=== PATIENT | female | born 1935 | race African-American/Black ===

== ENCOUNTER 2017-06-24 12:44 | Inpatient (IN) | payer MEDICARE, MEDICAID ==
[~2017-06-24] VITALS: Ht 147.3 cm; Wt 49.2 kg
[~2017-06-24 12:44] MED LIST: ASPI-1159 PO; BIMA2.5D4 EACHEYE; FLUT1AER; FURO-152 PO; GABA-531 PO; HYDR-4134 PO; LEVO50TA70 PO; POTA20TA75 PO; PRAV40TA58 PO; RANI150C12; SIMV20TA6 PO; SPIR25TA4 PO
[2017-06-24] MEDS ORDERED: IPRATROPIUM BROMIDE (0.02%) 0.5MG/2.5ML NEB HHN STA (13:02)
[2017-06-24] MEDS ORDERED: METHYLPREDNISOLONE SOD SUCC 125 MG/2 ML VIAL IV STA (13:02)
[2017-06-24 13:27] LABS: HEMATOCRIT. 26.9 % (36.0-48.0); HEMOGLOBIN. 8.8 g/dL (12.0-16.0); MEAN CORPUSCULAR HEMOGLOBIN 28.4 pg (28.0-32.0); MEAN PLATELET VOLUME 7.2 fl (7.4-10.4); PLATELET 520 x1000/uL (130-400); RED BLOOD CELL COUNT 3.09 mill/uL (4.2-5.4)
[2017-06-24] MEDS ORDERED: ALBUTEROL (0.083%) 2.5MG/3ML NEB HHN SCH (13:30)
[2017-06-24 13:37] LABS: CARBON DIOXIDE 29 mEq/L (21-32); CHLORIDE 99 mEq/L (98-107)
[2017-06-24 13:45] LABS: TROPONIN I < 0.02 ng/mL (0.00-0.04)
[2017-06-24 13:55] LABS: INR 1.5
[2017-06-24 14:02] LABS: PLATELET ESTIMATE INCREASED
[2017-06-24] MEDS ORDERED: FUROSEMIDE 40MG/4ML VIAL IV ONE (14:15)
[2017-06-24] MEDS ORDERED: ASPIRIN 81MG TABLET PO ONE (14:15)
[2017-06-24 15:15] LABS: BG BASE EXCESS 0.1 mmol/L (-2.0-2.0); BG CARBOXYHEMOGLOBIN 0.5 % (0.5-1.5); BG DEOXYHEMOGLOBIN 17.6 % (0.0-5.0); BG FRACTION INSPIRED OXYGEN 32; BG HCO3 ACT 24.6 mmol/L (22.0-26.0); BG METHEMOGLOBIN 0.4 % (0.0-1.5); BG OXYGEN SATURATION 82.2 % (92.0-98.5); BG OXYHEMOGLOBIN 81.5 % (94.0-97.0); BG PCO2 39.2 mmHg (35.0-45.0); BG PH 7.415 (7.350-7.450); BG SAMPLE SITE RIGHT BRACHIAL; BG TOTAL HEMOGLOBIN 9.7 g/dL (12.0-18.0); BG VENT MODE NASAL CANNULA
[2017-06-24 15:29] LABS: TOTAL IRON BINDING CAPACITY 229 ug/dL (250-450)
[2017-06-24 17:11] VITALS: BP 125/56
[2017-06-24] MEDS ORDERED: AMIO200T39 PO (17:56)
[2017-06-24] MEDS ORDERED: DILT180C69 PO (17:56)
[2017-06-24] MEDS ORDERED: HYDR-4135 PO (17:56)
[2017-06-24] MEDS ORDERED: FURO-152 PO (17:56)
[2017-06-24] MEDS ORDERED: RANI300T4 PO (17:56)
[2017-06-24] MEDS ORDERED: TIOT18CA3 IH (17:56)
[2017-06-24] MEDS ORDERED: APIX2.5T PO (17:56)
[2017-06-24] MEDS ORDERED: POTA20TA75 PO (17:56)
[2017-06-24] MEDS ORDERED: LEVO50TA70 PO (17:56)
[2017-06-24] MEDS ORDERED: GABA100C PO ×2 (17:56)
[2017-06-24] MEDS ORDERED: PRAV40TA PO (17:56)
[2017-06-24 18:00] VITALS: BP 111/52
[2017-06-24] MEDS ORDERED: IPRATROPIUM/ALBUTEROL 0.5-3(2.5)MG/3ML NEB HHN PRN (18:30)
[2017-06-24] MEDS: IPRATROPIUM/ALBUTEROL 0.5-3(2.5)MG/3ML NEB HHN SCH (19:34)
[2017-06-24 20:00] VITALS: BP 125/73
[2017-06-24] MEDS ORDERED: DILTIAZEM HCL 180MG CAPSULE CD 24HR PO SCH (20:00)
[2017-06-24] MEDS ORDERED: AMIODARONE HCL 200 MG TABLET PO SCH (20:00)
[2017-06-24] MEDS: GABAPENTIN 100MG CAPSULE PO SCH (21:42)
[2017-06-24] MEDS: HYDRALAZINE HCL 50MG TABLET PO SCH (21:43)
[2017-06-24 22:00] VITALS: BP 117/69
[2017-06-24] MEDS ORDERED: ACETAMINOPHEN WITH CODEINE 300/60MG TABLET PO PRN (23:30)
[2017-06-25] VITALS (16 sets, daily range): BP systolic 94–129; BP diastolic 51–75
[2017-06-25] MEDS: IPRATROPIUM/ALBUTEROL 0.5-3(2.5)MG/3ML NEB HHN SCH ×6 (00:03→20:08)
[2017-06-25 07:03] LABS: BASOPHILS % 0.3 % (0.0-2.0); MONOCYTES % 6.4 % (2.0-8.0)
[2017-06-25] MEDS ORDERED: LEVOTHYROXINE SODIUM 50MCG TABLET PO SCH (07:30)
[2017-06-25 07:38] LABS: HEMATOCRIT. 24.8 % (36.0-48.0); HEMOGLOBIN. 8.1 g/dL (12.0-16.0); MEAN CORPUSCULAR HEMOGLOBIN 28.2 pg (28.0-32.0); MEAN CORPUSCULAR VOLUME 86.6 fL (81.0-99.0); MEAN PLATELET VOLUME 7.5 fl (7.4-10.4); PLATELET 400 x1000/uL (130-400); RED BLOOD CELL COUNT 2.87 mill/uL (4.2-5.4); RED CELL DISTRIBUTION WIDTH 15.4 % (11.6-14.6)
[2017-06-25 07:45] LABS: CHLORIDE 100 mEq/L (98-107)
[2017-06-25 08:05] LABS: CARBON DIOXIDE 26 mEq/L (21-32); TROPONIN I < 0.02 ng/mL (0.00-0.04)
[2017-06-25] MEDS ORDERED: APIXABAN 2.5 MG TABLET PO SCH (09:00)
[2017-06-25] MEDS: HYDRALAZINE HCL 50MG TABLET PO SCH (09:00)
[2017-06-25] MEDS: DILTIAZEM HCL 180MG CAPSULE CD 24HR PO SCH (09:00)
[2017-06-25] MEDS: POTASSIUM CHLORIDE 20MEQ TABLET SR PO SCH (09:00)
[2017-06-25] MEDS: GABAPENTIN 100MG CAPSULE PO SCH (09:00)
[2017-06-25] MEDS: AMIODARONE HCL 200 MG TABLET PO SCH (09:00)
[2017-06-25 12:24] LABS: PLATELET ESTIMATE NORMAL
[2017-06-25] MEDS: HYDROMORPHONE HCL/PF 2MG/ML CPJ IV PRN ×2 (15:14→19:43)
[2017-06-25] MEDS: CEFTRIAXONE 1 G PREMIX 50 ML IV SCH (15:23)
[2017-06-25] MEDS: FUROSEMIDE 100MG/10ML VIAL IVP SCH (15:23)
[2017-06-25] MEDS ORDERED: MAGNESIUM 2 G PREMIX 50 ML IV SCH (16:00)
[2017-06-25 17:21] LABS: BG BASE EXCESS 4.2 mmol/L (-2.0-2.0); BG CARBOXYHEMOGLOBIN 0.3 % (0.5-1.5); BG DEOXYHEMOGLOBIN 6.8 % (0.0-5.0); BG FRACTION INSPIRED OXYGEN 100; BG HCO3 ACT 28.4 mmol/L (22.0-26.0); BG METHEMOGLOBIN 0.5 % (0.0-1.5); BG OXYGEN SATURATION 93.1 % (92.0-98.5); BG OXYHEMOGLOBIN 92.4 % (94.0-97.0); BG PCO2 40.9 mmHg (35.0-45.0); BG PH 7.459 (7.350-7.450); BG PO2 69.2 mmHg (75.0-100.0); BG SAMPLE SITE RIGHT RADIAL; BG TOTAL HEMOGLOBIN 8.8 g/dL (12.0-18.0); BG VENT MODE MASK - NRB
[2017-06-25] MEDS: IRON SUCROSE COMPLEX 100 MG/5 ML ML IV SCH (21:10)
[2017-06-25] MEDS ORDERED: ALBUTEROL (0.083%) 2.5MG/3ML NEB HHN PRN (21:30)
[2017-06-26] VITALS (12 sets, daily range): BP systolic 106–148; BP diastolic 57–95
[2017-06-26] MEDS: ALBUTEROL (0.083%) 2.5MG/3ML NEB HHN SCH ×6 (00:04→20:17)
[2017-06-26] MEDS: ACETYLCYSTEINE 100MG/ML 10% VIAL 4ML INH SCH ×3 (00:04→20:19)
[2017-06-26] MEDS: HYDROMORPHONE HCL/PF 2MG/ML CPJ IV PRN ×3 (06:41→23:19)
[2017-06-26 07:16] LABS: CARBON DIOXIDE 31 mEq/L (21-32); CHLORIDE 100 mEq/L (98-107); CREATINE KINASE 24 IU/L (26-192)
[2017-06-26 07:19] LABS: CREATINE KINASE MB FRACTION 1.8 ng/mL (0.5-3.6); TROPONIN I < 0.02 ng/mL (0.00-0.04)
[2017-06-26 07:25] LABS: HEMATOCRIT. 27.3 % (36.0-48.0); MEAN CORPUSCULAR HEMOGLOBIN 27.8 pg (28.0-32.0); MEAN CORPUSCULAR VOLUME 84.6 fL (81.0-99.0); MEAN PLATELET VOLUME 7.5 fl (7.4-10.4); PLATELET 442 x1000/uL (130-400); RED BLOOD CELL COUNT 3.23 mill/uL (4.2-5.4); RED CELL DISTRIBUTION WIDTH 15.5 % (11.6-14.6)
[2017-06-26] MEDS: DILTIAZEM HCL 180MG CAPSULE CD 24HR PO SCH (09:00)
[2017-06-26] MEDS: AMIODARONE HCL 200 MG TABLET PO SCH (09:00)
[2017-06-26] MEDS: POTASSIUM CHLORIDE 20MEQ TABLET SR PO SCH (09:00)
[2017-06-26] MEDS: FUROSEMIDE 100MG/10ML VIAL IVP SCH (11:20)
[2017-06-26] MEDS: CEFTRIAXONE 1 G PREMIX 50 ML IV SCH (11:20)
[2017-06-26] MEDS ORDERED: SODIUM BICARBONATE 4.2% 5 MEQ/10 ML DISP.SYRIN IV ONE (11:27)
[2017-06-26 11:30] LABS: INR 1.1; PARTIAL THROMBOPLASTIN TIME 36.2 sec (24.0-34.0)
[2017-06-26 17:33] LABS: PLATELET ESTIMATE INCREASED
[2017-06-26] MEDS: IRON SUCROSE COMPLEX 100 MG/5 ML ML IV SCH (20:45)
[2017-06-26 20:56] LABS: BG CARBOXYHEMOGLOBIN 0.3 % (0.5-1.5); BG DEOXYHEMOGLOBIN 5.5 % (0.0-5.0); BG FRACTION INSPIRED OXYGEN 100; BG HCO3 ACT 32.2 mmol/L (22.0-26.0); BG METHEMOGLOBIN 0.1 % (0.0-1.5); BG OXYGEN SATURATION 94.5 % (92.0-98.5); BG OXYHEMOGLOBIN 94.1 % (94.0-97.0); BG PCO2 43.6 mmHg (35.0-45.0); BG PH 7.486 (7.350-7.450); BG PO2 74.3 mmHg (75.0-100.0); BG SAMPLE SITE RIGHT RADIAL; BG TOTAL HEMOGLOBIN 10.2 g/dL (12.0-18.0); BG VENT MODE MASK - NRB
[2017-06-27] VITALS (11 sets, daily range): BP systolic 122–150; BP diastolic 63–79
[2017-06-27] MEDS: ALBUTEROL (0.083%) 2.5MG/3ML NEB HHN SCH ×6 (00:47→20:33)
[2017-06-27] MEDS: ACETYLCYSTEINE 100MG/ML 10% VIAL 4ML INH SCH ×2 (08:29→17:03)
[2017-06-27] MEDS: AMIODARONE HCL 200 MG TABLET PO SCH (09:00)
[2017-06-27] MEDS: DILTIAZEM HCL 180MG CAPSULE CD 24HR PO SCH (09:00)
[2017-06-27] MEDS ORDERED: VANCOMYCIN 1 G PREMIX 200 ML IV NR (09:30)
[2017-06-27] MEDS: HYDROMORPHONE HCL/PF 2MG/ML CPJ IV PRN ×3 (10:20→19:57)
[2017-06-27] MEDS: FUROSEMIDE 100MG/10ML VIAL IVP SCH (10:21)
[2017-06-27] MEDS: PANTOPRAZOLE SODIUM 40 MG/VIAL IV SCH (10:21)
[2017-06-27] MEDS: CEFTRIAXONE 1 G PREMIX 50 ML IV SCH (10:43)
[2017-06-27 11:23] LABS: HEMATOCRIT. 28.1 % (36.0-48.0); HEMOGLOBIN. 9.2 g/dL (12.0-16.0); MEAN CORPUSCULAR HEMOGLOBIN 27.8 pg (28.0-32.0); MEAN CORPUSCULAR VOLUME 84.8 fL (81.0-99.0); MEAN PLATELET VOLUME 7.3 fl (7.4-10.4); PLATELET 405 x1000/uL (130-400); RED BLOOD CELL COUNT 3.32 mill/uL (4.2-5.4); RED CELL DISTRIBUTION WIDTH 15.3 % (11.6-14.6)
[2017-06-27 11:41] LABS: CARBON DIOXIDE 32 mEq/L (21-32); CHLORIDE 103 mEq/L (98-107)
[2017-06-27] MEDS ORDERED: CLONIDINE 0.1MG TABLET PO PRN (13:00)
[2017-06-27] MEDS ORDERED: POTASSIUM CHLORIDE 20MEQ TABLET SR PO NR (13:00)
[2017-06-27 13:55] LABS: NUCLEATED RED BLOOD CELLS 3 /100 WBC; PLATELET ESTIMATE 3
[2017-06-27] MEDS ORDERED: KCL 20MEQ/100ML PREMIX 100 ML IV SCH (15:00)
[2017-06-27 15:58] LABS: BG BASE EXCESS 4.2 mmol/L (-2.0-2.0); BG CARBOXYHEMOGLOBIN 0.3 % (0.5-1.5); BG FRACTION INSPIRED OXYGEN 60; BG HCO3 ACT 27.7 mmol/L (22.0-26.0); BG METHEMOGLOBIN 0.3 % (0.0-1.5); BG OXYGEN SATURATION 86.9 % (92.0-98.5); BG OXYHEMOGLOBIN 86.4 % (94.0-97.0); BG PCO2 37.2 mmHg (35.0-45.0); BG PO2 51.9 mmHg (75.0-100.0); BG SAMPLE SITE RIGHT RADIAL; BG TOTAL HEMOGLOBIN 10.1 g/dL (12.0-18.0); BG VENT MODE MASK - AEROSOL
[2017-06-27] MEDS ORDERED: POTASSIUM CHLORIDE 20MEQ TABLET SR PO SCH (17:00)
[2017-06-27] MEDS: FUROSEMIDE 40MG/4ML VIAL IV SCH (17:22)
[2017-06-27] MEDS: DEXT 5%/0.45% NACL KCL 20MEQ/L 1,000 ML IV SCH (17:23)
[2017-06-27 19:29] LABS: CLARITY URINE CLEAR (CLEAR); COLOR URINE YELLOW (YELLOW); GLUCOSE URINE NEGATIVE (NEGATIVE); KETONES URINE NEGATIVE (NEGATIVE); LEUKOCYTE ESTERASE URINE 1+ (NEGATIVE); NITRITE URINE NEGATIVE (NEGATIVE); OCCULT BLOOD URINE 2+ (NEGATIVE); PH URINE 7.5 (4.5-8.0); PROTEIN URINE NEGATIVE (NEGATIVE); SPECIFIC GRAVITY URINE 1.008 (1.005-1.030); UROBILINOGEN URINE 0.2 E.U./dL (0.2-1.0)
[2017-06-27] MEDS: IRON SUCROSE COMPLEX 100 MG/5 ML ML IV SCH (19:56)
[2017-06-28] VITALS (12 sets, daily range): BP systolic 116–160; BP diastolic 56–79
[2017-06-28] MEDS: ACETYLCYSTEINE 100MG/ML 10% VIAL 4ML INH SCH ×3 (00:45→20:55)
[2017-06-28] MEDS: ALBUTEROL (0.083%) 2.5MG/3ML NEB HHN SCH ×5 (00:45→20:53)
[2017-06-28] MEDS: HYDROMORPHONE HCL/PF 2MG/ML CPJ IV PRN ×5 (03:04→23:33)
[2017-06-28] MEDS: DEXT 5%/0.45% NACL KCL 20MEQ/L 1,000 ML IV SCH ×2 (05:47→23:32)
[2017-06-28 06:31] LABS: HEMATOCRIT. 28.7 % (36.0-48.0); HEMOGLOBIN. 9.6 g/dL (12.0-16.0); MEAN CORPUSCULAR HEMOGLOBIN 28.7 pg (28.0-32.0); MEAN CORPUSCULAR VOLUME 85.3 fL (81.0-99.0); MEAN PLATELET VOLUME 7.4 fl (7.4-10.4); PLATELET 388 x1000/uL (130-400); RED BLOOD CELL COUNT 3.37 mill/uL (4.2-5.4); RED CELL DISTRIBUTION WIDTH 15.7 % (11.6-14.6)
[2017-06-28 07:37] LABS: CARBON DIOXIDE 34 mEq/L (21-32); CHLORIDE 101 mEq/L (98-107)
[2017-06-28] MEDS ORDERED: MAGNESIUM 2 G PREMIX 50 ML IV SCH (09:00)
[2017-06-28] MEDS: FUROSEMIDE 40MG/4ML VIAL IV SCH ×2 (09:14→18:07)
[2017-06-28] MEDS: PANTOPRAZOLE SODIUM 40 MG/VIAL IV SCH (09:15)
[2017-06-28] MEDS: CEFTRIAXONE 1 G PREMIX 50 ML IV SCH (09:15)
[2017-06-28] MEDS: KCL 20MEQ/100ML PREMIX 100 ML IV SCH ×2 (10:15→14:30)
[2017-06-28] MEDS: DILTIAZEM HCL 180MG CAPSULE CD 24HR PO SCH (10:19)
[2017-06-28] MEDS: AMIODARONE HCL 200 MG TABLET PO SCH (10:19)
[2017-06-28 14:14] LABS: PLATELET ESTIMATE NORMAL
[2017-06-28] MEDS ORDERED: MAGNESIUM 2 G PREMIX 50 ML IV ONE (15:00)
[2017-06-29] VITALS (12 sets, daily range): BP systolic 103–144; BP diastolic 49–74
[2017-06-29] MEDS: ACETYLCYSTEINE 100MG/ML 10% VIAL 4ML INH SCH ×4 (01:00→21:16)
[2017-06-29] MEDS: ALBUTEROL (0.083%) 2.5MG/3ML NEB HHN SCH ×7 (01:00→21:16)
[2017-06-29] MEDS: HYDROMORPHONE HCL/PF 2MG/ML CPJ IV PRN ×3 (05:54→22:26)
[2017-06-29 07:34] LABS: HEMATOCRIT. 27.4 % (36.0-48.0); HEMOGLOBIN. 9.3 g/dL (12.0-16.0); MEAN CORPUSCULAR VOLUME 85.1 fL (81.0-99.0); PLATELET 337 x1000/uL (130-400); RED BLOOD CELL COUNT 3.22 mill/uL (4.2-5.4); RED CELL DISTRIBUTION WIDTH 15.3 % (11.6-14.6)
[2017-06-29 07:58] LABS: CHLORIDE 101 mEq/L (98-107)
[2017-06-29 08:11] LABS: CARBON DIOXIDE 34 mEq/L (21-32)
[2017-06-29] MEDS: FAMOTIDINE 20MG/2ML VIAL IV SCH (08:20)
[2017-06-29] MEDS: FUROSEMIDE 40MG/4ML VIAL IV SCH ×2 (08:20→18:04)
[2017-06-29] MEDS: AMIODARONE HCL 200 MG TABLET PO SCH (08:20)
[2017-06-29] MEDS: DILTIAZEM HCL 180MG CAPSULE CD 24HR PO SCH (08:21)
[2017-06-29] MEDS: CEFTRIAXONE 1 G PREMIX 50 ML IV SCH (08:26)
[2017-06-29] MEDS: POTASSIUM BICARB/CIT ACID 25 MEQ TABLET.EFF PO SCH ×2 (10:53→18:03)
[2017-06-29] MEDS: SPIRONOLACTONE 25MG TABLET PO SCH ×2 (10:54→18:04)
[2017-06-29] MEDS: DEXT 5%/0.45% NACL KCL 20MEQ/L 1,000 ML IV SCH (10:55)
[2017-06-29] MEDS ORDERED: MAGNESIUM 2 G PREMIX 50 ML IV SCH (11:00)
[2017-06-29 14:15] LABS: PLATELET ESTIMATE NORMAL
[2017-06-29] MEDS ORDERED: FLUCONAZOLE IV SCH (18:00)
[2017-06-30] VITALS (12 sets, daily range): BP systolic 110–153; BP diastolic 53–88
[2017-06-30] MEDS: ALBUTEROL (0.083%) 2.5MG/3ML NEB HHN SCH ×7 (00:59→23:46)
[2017-06-30] MEDS: DEXT 5%/0.45% NACL KCL 20MEQ/L 1,000 ML IV SCH ×2 (02:41→18:36)
[2017-06-30 06:23] LABS: CLARITY URINE CLEAR (CLEAR); COLOR URINE YELLOW (YELLOW); GLUCOSE URINE NEGATIVE (NEGATIVE); KETONES URINE NEGATIVE (NEGATIVE); LEUKOCYTE ESTERASE URINE TRACE (NEGATIVE); NITRITE URINE NEGATIVE (NEGATIVE); OCCULT BLOOD URINE TRACE (NEGATIVE); PH URINE >=9.0 (4.5-8.0); PROTEIN URINE 1+ (NEGATIVE); SPECIFIC GRAVITY URINE 1.012 (1.005-1.030); UROBILINOGEN URINE 0.2 E.U./dL (0.2-1.0)
[2017-06-30 06:25] LABS: BASOPHILS % 0.4 % (0.0-2.0); EOSINOPHILS % 1.2 % (0.0-5.0); HEMATOCRIT. 28.7 % (36.0-48.0); HEMOGLOBIN. 9.5 g/dL (12.0-16.0); LYMPHOCYTES % 11.9 % (20.0-50.0); MEAN CORPUSCULAR HEMOGLOBIN 28.1 pg (28.0-32.0); MEAN CORPUSCULAR VOLUME 85.4 fL (81.0-99.0); MEAN PLATELET VOLUME 7.5 fl (7.4-10.4); MONOCYTES % 8.1 % (2.0-8.0); NEUTROPHILS % 78.4 % (40.0-76.0); PLATELET 346 x1000/uL (130-400); RED BLOOD CELL COUNT 3.36 mill/uL (4.2-5.4); RED CELL DISTRIBUTION WIDTH 15.8 % (11.6-14.6)
[2017-06-30 06:57] LABS: CARBON DIOXIDE 32 mEq/L (21-32); CHLORIDE 99 mEq/L (98-107); PHOSPHORUS 1.7 mg/dL (2.5-4.9)
[2017-06-30] MEDS: FUROSEMIDE 40MG/4ML VIAL IV SCH ×3 (09:00→18:41)
[2017-06-30] MEDS: SPIRONOLACTONE 25MG TABLET PO SCH ×3 (09:00→18:37)
[2017-06-30] MEDS: POTASSIUM BICARB/CIT ACID 25 MEQ TABLET.EFF PO SCH ×2 (09:00→18:36)
[2017-06-30] MEDS: DILTIAZEM HCL 180MG CAPSULE CD 24HR PO SCH ×3 (09:00→18:36)
[2017-06-30] MEDS: ACETYLCYSTEINE 100MG/ML 10% VIAL 4ML INH SCH ×3 (09:03→23:46)
[2017-06-30] MEDS: CEFTRIAXONE 1 G PREMIX 50 ML IV SCH (10:54)
[2017-06-30] MEDS: FAMOTIDINE 20MG/2ML VIAL IV SCH (10:54)
[2017-06-30] MEDS: AMIODARONE HCL 200 MG TABLET PO SCH ×2 (10:55→18:37)
[2017-06-30] MEDS: HYDROMORPHONE HCL/PF 2MG/ML CPJ IV PRN ×3 (11:30→22:00)
[2017-06-30] MEDS: FLUCONAZOLE 100MG TABLET PO SCH (18:37)
[2017-07-01] VITALS (11 sets, daily range): BP systolic 102–150; BP diastolic 46–86
[2017-07-01] MEDS: ALBUTEROL (0.083%) 2.5MG/3ML NEB HHN SCH ×6 (04:51→23:54)
[2017-07-01] MEDS: DEXT 5%/0.45% NACL KCL 20MEQ/L 1,000 ML IV SCH ×3 (05:51→23:22)
[2017-07-01 06:47] LABS: BASOPHILS % 0.5 % (0.0-2.0); EOSINOPHILS % 1.1 % (0.0-5.0); HEMOGLOBIN. 9.8 g/dL (12.0-16.0); LYMPHOCYTES % 11.2 % (20.0-50.0); MEAN CORPUSCULAR HEMOGLOBIN 28.2 pg (28.0-32.0); MEAN CORPUSCULAR VOLUME 86.2 fL (81.0-99.0); MEAN PLATELET VOLUME 7.7 fl (7.4-10.4); MONOCYTES % 8.6 % (2.0-8.0); NEUTROPHILS % 78.6 % (40.0-76.0); PLATELET 354 x1000/uL (130-400); RED BLOOD CELL COUNT 3.48 mill/uL (4.2-5.4); RED CELL DISTRIBUTION WIDTH 15.8 % (11.6-14.6)
[2017-07-01 07:42] LABS: CHLORIDE 99 mEq/L (98-107)
[2017-07-01 07:47] LABS: CARBON DIOXIDE 30 mEq/L (21-32)
[2017-07-01] MEDS: FAMOTIDINE 20MG/2ML VIAL IV SCH (09:41)
[2017-07-01] MEDS: SPIRONOLACTONE 25MG TABLET PO SCH ×2 (09:41→18:30)
[2017-07-01] MEDS: CEFTRIAXONE 1 G PREMIX 50 ML IV SCH (09:41)
[2017-07-01] MEDS: FLUCONAZOLE 100MG TABLET PO SCH (09:41)
[2017-07-01] MEDS: POTASSIUM BICARB/CIT ACID 25 MEQ TABLET.EFF PO SCH (09:41)
[2017-07-01] MEDS: FUROSEMIDE 40MG/4ML VIAL IV SCH ×2 (09:41→18:29)
[2017-07-01] MEDS: DILTIAZEM HCL 180MG CAPSULE CD 24HR PO SCH (10:46)
[2017-07-01] MEDS: AMIODARONE HCL 200 MG TABLET PO SCH (10:46)
[2017-07-01] MEDS: HYDROMORPHONE HCL/PF 2MG/ML CPJ IV PRN ×2 (14:30→22:16)
[2017-07-01] MEDS: ENOXAPARIN 30MG/0.3ML SYR SUBCUT SCH (16:54)
[2017-07-01] MEDS ORDERED: MAGNESIUM 2 G PREMIX 50 ML IV NR (17:00)
[2017-07-01] MEDS: ASPIRIN 81MG TABLET PO SCH (18:30)
[2017-07-01] MEDS ORDERED: AMIODARONE HCL 200 MG TABLET PO SCH (21:00)
[2017-07-02] VITALS (12 sets, daily range): BP systolic 108–137; BP diastolic 47–83
[2017-07-02] MEDS: ALBUTEROL (0.083%) 2.5MG/3ML NEB HHN SCH ×5 (04:07→20:54)
[2017-07-02 07:12] LABS: BASOPHILS % 0.8 % (0.0-2.0); EOSINOPHILS % 1.6 % (0.0-5.0); HEMATOCRIT. 27.8 % (36.0-48.0); HEMOGLOBIN. 9.1 g/dL (12.0-16.0); LYMPHOCYTES % 13.9 % (20.0-50.0); MEAN CORPUSCULAR HEMOGLOBIN 28.1 pg (28.0-32.0); MEAN CORPUSCULAR VOLUME 85.7 fL (81.0-99.0); MEAN PLATELET VOLUME 7.8 fl (7.4-10.4); MONOCYTES % 10.5 % (2.0-8.0); NEUTROPHILS % 73.2 % (40.0-76.0); PLATELET 385 x1000/uL (130-400); RED BLOOD CELL COUNT 3.25 mill/uL (4.2-5.4); RED CELL DISTRIBUTION WIDTH 15.7 % (11.6-14.6)
[2017-07-02 07:42] LABS: CARBON DIOXIDE 31 mEq/L (21-32); CHLORIDE 98 mEq/L (98-107)
[2017-07-02] MEDS: POTASSIUM BICARB/CIT ACID 25 MEQ TABLET.EFF PO SCH (08:36)
[2017-07-02] MEDS: FLUCONAZOLE 100MG TABLET PO SCH (08:36)
[2017-07-02] MEDS: FUROSEMIDE 40MG/4ML VIAL IV SCH ×2 (08:36→17:39)
[2017-07-02] MEDS: CEFTRIAXONE 1 G PREMIX 50 ML IV SCH (08:36)
[2017-07-02] MEDS: ASPIRIN 81MG TABLET PO SCH (08:36)
[2017-07-02] MEDS: SPIRONOLACTONE 25MG TABLET PO SCH ×2 (08:37→17:43)
[2017-07-02] MEDS: FAMOTIDINE 20MG/2ML VIAL IV SCH (08:37)
[2017-07-02] MEDS: ACETAMINOPHEN WITH CODEINE 300/60MG TABLET PO PRN ×2 (12:40→21:52)
[2017-07-02] MEDS: ENOXAPARIN 30MG/0.3ML SYR SUBCUT SCH (15:44)
[2017-07-02] MEDS: NA PHOS,M-B/NA PHOS,DI-BA ENEMA 118ML PR NR ×2 (21:10→21:27)
[2017-07-02] MEDS ORDERED: LACTULOSE 20G/30ML UDC PO NR (21:30)
[2017-07-03] VITALS (12 sets, daily range): BP systolic 95–123; BP diastolic 48–75
[2017-07-03] MEDS: ALBUTEROL (0.083%) 2.5MG/3ML NEB HHN SCH ×7 (00:42→23:47)
[2017-07-03 06:22] LABS: CHLORIDE 100 mEq/L (98-107)
[2017-07-03 06:51] LABS: CARBON DIOXIDE 27 mEq/L (21-32)
[2017-07-03 07:13] LABS: BASOPHILS % 1.1 % (0.0-2.0); EOSINOPHILS % 1.8 % (0.0-5.0); HEMATOCRIT. 29.6 % (36.0-48.0); HEMOGLOBIN. 9.7 g/dL (12.0-16.0); LYMPHOCYTES % 17.3 % (20.0-50.0); MEAN CORPUSCULAR HEMOGLOBIN 27.7 pg (28.0-32.0); MEAN CORPUSCULAR VOLUME 84.9 fL (81.0-99.0); MEAN PLATELET VOLUME 8.1 fl (7.4-10.4); MONOCYTES % 13.6 % (2.0-8.0); NEUTROPHILS % 66.2 % (40.0-76.0); PLATELET 429 x1000/uL (130-400); RED BLOOD CELL COUNT 3.49 mill/uL (4.2-5.4); RED CELL DISTRIBUTION WIDTH 15.7 % (11.6-14.6)
[2017-07-03] MEDS: FUROSEMIDE 40MG/4ML VIAL IV SCH (08:40)
[2017-07-03] MEDS: DILTIAZEM HCL 180MG CAPSULE CD 24HR PO SCH (08:40)
[2017-07-03] MEDS: AMIODARONE HCL 200 MG TABLET PO SCH ×3 (08:40→17:02)
[2017-07-03] MEDS: ASPIRIN 81MG TABLET PO SCH (08:40)
[2017-07-03] MEDS: CEFTRIAXONE 1 G PREMIX 50 ML IV SCH (08:40)
[2017-07-03] MEDS: FAMOTIDINE 20MG/2ML VIAL IV SCH (08:40)
[2017-07-03] MEDS: POTASSIUM BICARB/CIT ACID 25 MEQ TABLET.EFF PO SCH (08:40)
[2017-07-03] MEDS: SPIRONOLACTONE 25MG TABLET PO SCH ×2 (08:40→17:02)
[2017-07-03] MEDS: FLUCONAZOLE 100MG TABLET PO SCH (08:41)
[2017-07-03] MEDS: ENOXAPARIN 40MG/0.4ML SYR SUBCUT SCH ×2 (12:19→21:33)
[2017-07-03] MEDS: ACETAMINOPHEN 650MG/20.3ML UDC PO PRN (17:01)
[2017-07-03] MEDS: MAGNESIUM HYDROXIDE 400MG/5ML 30ML UDC PO PRN (17:01)
[2017-07-03] MEDS: FUROSEMIDE 40MG TABLET PO SCH (17:01)
[2017-07-03] MEDS: GABAPENTIN 300MG CAPSULE PO SCH (17:01)
[2017-07-04] VITALS (11 sets, daily range): BP systolic 98–126; BP diastolic 47–66
[2017-07-04] MEDS: ALBUTEROL (0.083%) 2.5MG/3ML NEB HHN SCH ×6 (04:35→23:36)
[2017-07-04] MEDS: FUROSEMIDE 40MG TABLET PO SCH ×2 (06:46→18:07)
[2017-07-04 06:54] LABS: BASOPHILS % 0.9 % (0.0-2.0); HEMATOCRIT. 30.7 % (36.0-48.0); HEMOGLOBIN. 10.1 g/dL (12.0-16.0); LYMPHOCYTES % 19.9 % (20.0-50.0); MEAN CORPUSCULAR VOLUME 85.5 fL (81.0-99.0); MEAN PLATELET VOLUME 7.6 fl (7.4-10.4); MONOCYTES % 11.2 % (2.0-8.0); PLATELET 516 x1000/uL (130-400); RED BLOOD CELL COUNT 3.59 mill/uL (4.2-5.4); RED CELL DISTRIBUTION WIDTH 15.5 % (11.6-14.6)
[2017-07-04 07:02] LABS: CARBON DIOXIDE 32 mEq/L (21-32); CHLORIDE 97 mEq/L (98-107)
[2017-07-04] MEDS: ENOXAPARIN 40MG/0.4ML SYR SUBCUT SCH (08:52)
[2017-07-04] MEDS: CEFTRIAXONE 1 G PREMIX 50 ML IV SCH (08:52)
[2017-07-04] MEDS: FAMOTIDINE 20MG/2ML VIAL IV SCH (08:52)
[2017-07-04] MEDS: SPIRONOLACTONE 25MG TABLET PO SCH ×2 (08:53→18:08)
[2017-07-04] MEDS: FLUCONAZOLE 100MG TABLET PO SCH (08:53)
[2017-07-04] MEDS: ASPIRIN 81MG TABLET PO SCH (08:53)
[2017-07-04] MEDS: DILTIAZEM HCL 180MG CAPSULE CD 24HR PO SCH (08:53)
[2017-07-04] MEDS: GABAPENTIN 300MG CAPSULE PO SCH ×2 (08:53→18:07)
[2017-07-04] MEDS: AMIODARONE HCL 200 MG TABLET PO SCH ×3 (08:53→18:08)
[2017-07-04 11:38] LABS: BG BASE EXCESS 7.9 mmol/L (-2.0-2.0); BG CARBOXYHEMOGLOBIN 0.3 % (0.5-1.5); BG DEOXYHEMOGLOBIN 12.1 % (0.0-5.0); BG FRACTION INSPIRED OXYGEN 36; BG HCO3 ACT 31.7 mmol/L (22.0-26.0); BG METHEMOGLOBIN 0.3 % (0.0-1.5); BG OXYGEN SATURATION 87.8 % (92.0-98.5); BG OXYHEMOGLOBIN 87.3 % (94.0-97.0); BG PCO2 41.3 mmHg (35.0-45.0); BG PH 7.503 (7.350-7.450); BG PO2 52.2 mmHg (75.0-100.0); BG SAMPLE SITE RIGHT BRACHIAL; BG TOTAL HEMOGLOBIN 10.6 g/dL (12.0-18.0); BG VENT MODE NASAL CANNULA
[2017-07-04 16:36] LABS: INR 1.1; PARTIAL THROMBOPLASTIN TIME 25.4 sec (24.0-34.0); PROTHROMBIN TIME 11.8 sec
[2017-07-05] VITALS (15 sets, daily range): BP systolic 91–129; BP diastolic 50–70
[2017-07-05] MEDS: ALBUTEROL (0.083%) 2.5MG/3ML NEB HHN SCH ×5 (04:23→20:53)
[2017-07-05 06:05] LABS: HEMATOCRIT. 27.3 % (36.0-48.0); HEMOGLOBIN. 8.9 g/dL (12.0-16.0); MEAN CORPUSCULAR HEMOGLOBIN 27.7 pg (28.0-32.0); MEAN CORPUSCULAR VOLUME 85.2 fL (81.0-99.0); PLATELET 525 x1000/uL (130-400); RED BLOOD CELL COUNT 3.21 mill/uL (4.2-5.4); RED CELL DISTRIBUTION WIDTH 15.8 % (11.6-14.6)
[2017-07-05 07:36] LABS: CHLORIDE 100 mEq/L (98-107)
[2017-07-05 08:07] LABS: CARBON DIOXIDE 29 mEq/L (21-32)
[2017-07-05] MEDS: DILTIAZEM HCL 180MG CAPSULE CD 24HR PO SCH (09:00)
[2017-07-05] MEDS: SPIRONOLACTONE 25MG TABLET PO SCH ×2 (09:00→17:28)
[2017-07-05] MEDS: CEFTRIAXONE 1 G PREMIX 50 ML IV SCH (10:43)
[2017-07-05] MEDS: FUROSEMIDE 40MG TABLET PO SCH ×2 (10:43→17:28)
[2017-07-05] MEDS: FAMOTIDINE 20MG/2ML VIAL IV SCH (10:43)
[2017-07-05] MEDS: FLUCONAZOLE 100MG TABLET PO SCH (10:45)
[2017-07-05] MEDS: AMIODARONE HCL 200 MG TABLET PO SCH ×3 (10:46→19:02)
[2017-07-05 10:51] LABS: PLATELET ESTIMATE INCREASED
[2017-07-05] MEDS: GABAPENTIN 300MG CAPSULE PO SCH (20:50)
[2017-07-06] VITALS (12 sets, daily range): BP systolic 90–116; BP diastolic 50–66
[2017-07-06] MEDS: ALBUTEROL (0.083%) 2.5MG/3ML NEB HHN SCH ×5 (00:18→20:22)
[2017-07-06] MEDS: ACETAMINOPHEN 650MG/20.3ML UDC PO PRN (04:27)
[2017-07-06 05:34] LABS: BASOPHILS % 2.1 % (0.0-2.0); EOSINOPHILS % 0.9 % (0.0-5.0); HEMATOCRIT. 27.9 % (36.0-48.0); LYMPHOCYTES % 20.8 % (20.0-50.0); MEAN CORPUSCULAR HEMOGLOBIN 27.6 pg (28.0-32.0); MEAN CORPUSCULAR VOLUME 85.2 fL (81.0-99.0); MEAN PLATELET VOLUME 7.6 fl (7.4-10.4); MONOCYTES % 13.3 % (2.0-8.0); NEUTROPHILS % 62.9 % (40.0-76.0); PLATELET 552 x1000/uL (130-400); RED BLOOD CELL COUNT 3.27 mill/uL (4.2-5.4); RED CELL DISTRIBUTION WIDTH 15.6 % (11.6-14.6)
[2017-07-06] MEDS: FUROSEMIDE 40MG TABLET PO SCH (06:33)
[2017-07-06] MEDS: SPIRONOLACTONE 25MG TABLET PO SCH ×2 (09:50→16:55)
[2017-07-06] MEDS: DILTIAZEM HCL 180MG CAPSULE CD 24HR PO SCH (09:50)
[2017-07-06] MEDS: FAMOTIDINE 20MG/2ML VIAL IV SCH (09:50)
[2017-07-06] MEDS: AMIODARONE HCL 200 MG TABLET PO SCH ×3 (09:50→16:55)
[2017-07-06] MEDS ORDERED: SODIUM BICARBONATE 4.2% 5 MEQ/10 ML DISP.SYRIN IV ONE (10:35)
[2017-07-06] MEDS: GABAPENTIN 300MG CAPSULE PO SCH (21:29)
[2017-07-07] VITALS (12 sets, daily range): BP systolic 97–113; BP diastolic 45–63
[2017-07-07] MEDS: ALBUTEROL (0.083%) 2.5MG/3ML NEB HHN SCH ×7 (00:10→23:39)
[2017-07-07] MEDS: FAMOTIDINE 20MG/2ML VIAL IV SCH (09:37)
[2017-07-07] MEDS: ASPIRIN 81MG TABLET PO SCH (09:37)
[2017-07-07] MEDS: AMIODARONE HCL 200 MG TABLET PO SCH ×3 (09:37→17:33)
[2017-07-07] MEDS: ENOXAPARIN 40MG/0.4ML SYR SUBCUT SCH ×2 (09:38→21:24)
[2017-07-07] MEDS: SPIRONOLACTONE 25MG TABLET PO SCH ×2 (09:40→17:34)
[2017-07-07] MEDS: DILTIAZEM HCL 180MG CAPSULE CD 24HR PO SCH (09:40)
[2017-07-07] MEDS: GABAPENTIN 300MG CAPSULE PO SCH (21:25)
[2017-07-07] MEDS: MAGNESIUM HYDROXIDE 400MG/5ML 30ML UDC PO PRN (21:25)
[2017-07-08] VITALS (8 sets, daily range): BP systolic 93–121; BP diastolic 51–66
[2017-07-08] MEDS: ALBUTEROL (0.083%) 2.5MG/3ML NEB HHN SCH ×3 (03:59→13:06)
[2017-07-08] MEDS: DILTIAZEM HCL 180MG CAPSULE CD 24HR PO SCH (09:00)
[2017-07-08] MEDS: AMIODARONE HCL 200 MG TABLET PO SCH ×2 (09:00→13:00)
[2017-07-08] MEDS: FAMOTIDINE 20MG/2ML VIAL IV SCH (10:48)
[2017-07-08] MEDS: ENOXAPARIN 40MG/0.4ML SYR SUBCUT SCH (10:48)
[2017-07-08] MEDS: SPIRONOLACTONE 25MG TABLET PO SCH (10:49)
[2017-07-08] MEDS: HYDRALAZINE HCL 50MG TABLET PO SCH (10:49)
[2017-07-08] MEDS: ASPIRIN 81MG TABLET PO SCH (10:50)
[2017-07-08 11:06] LABS: HEMATOCRIT. 31.8 % (36.0-48.0); HEMOGLOBIN. 10.2 g/dL (12.0-16.0); LYMPHOCYTES % 20.3 % (20.0-50.0); MEAN CORPUSCULAR HEMOGLOBIN 27.5 pg (28.0-32.0); MEAN CORPUSCULAR VOLUME 85.7 fL (81.0-99.0); MEAN PLATELET VOLUME 7.3 fl (7.4-10.4); MONOCYTES % 9.4 % (2.0-8.0); NEUTROPHILS % 67.3 % (40.0-76.0); PLATELET 588 x1000/uL (130-400); RED BLOOD CELL COUNT 3.71 mill/uL (4.2-5.4); RED CELL DISTRIBUTION WIDTH 16.1 % (11.6-14.6)
[2017-07-08] MEDS ORDERED: LEVOTHYROXINE SODIUM 50MCG TABLET PO SCH (11:15)
== END 2017-07-08 15:20 | disposition short-term general hospital (02) | DRG 871 ==
LOC: ER 13:14 → 5EST 14:21 → EDBEDREQSVC 15:19 → ENRESERV 15:52
PROVIDERS: ADMIT Specialist; ATTEND Specialist
PROC: 5A09357 Assistance with Respiratory Ventilation, Less than 24 Consecutive Hours, Continuous Positive Airway Pressure (ICD-10-PCS; principal; 2017-06-24)
PROC: 02HV33Z Insertion of Infusion Device into Superior Vena Cava, Percutaneous Approach (ICD-10-PCS; 2017-06-25)
PROC: 0W9B3ZX Drainage of Left Pleural Cavity, Percutaneous Approach, Diagnostic (ICD-10-PCS; 2017-06-25)
PROC: 0W9B3ZZ Drainage of Left Pleural Cavity, Percutaneous Approach (ICD-10-PCS; 2017-07-06)
DX: A41.9 Sepsis, unspecified organism (principal); E43 Unspecified severe protein-calorie malnutrition; J69.0 Pneumonitis due to inhalation of food and vomit; J96.21 Acute and chronic respiratory failure with hypoxia; I50.41 Acute combined systolic (congestive) and diastolic (congestive) heart failure; N39.0 Urinary tract infection, site not specified; I48.92 Unspecified atrial flutter; I42.1 Obstructive hypertrophic cardiomyopathy; B49 Unspecified mycosis; J44.1 Chronic obstructive pulmonary disease with (acute) exacerbation; I25.10 Atherosclerotic heart disease of native coronary artery without angina pectoris; F17.200 Nicotine dependence, unspecified, uncomplicated; I11.0 Hypertensive heart disease with heart failure; D50.9 Iron deficiency anemia, unspecified; E03.9 Hypothyroidism, unspecified; E78.5 Hyperlipidemia, unspecified; E78.00 Pure hypercholesterolemia, unspecified; E83.42 Hypomagnesemia; E87.6 Hypokalemia; I44.30 Unspecified atrioventricular block; G62.9 Polyneuropathy, unspecified; K21.9 Gastro-esophageal reflux disease without esophagitis; I48.0 Paroxysmal atrial fibrillation; I77.819 Aortic ectasia, unspecified site; M41.9 Scoliosis, unspecified; R13.10 Dysphagia, unspecified; Z85.819 Personal history of malignant neoplasm of unspecified site of lip, oral cavity, and pharynx; Z95.5 Presence of coronary angioplasty implant and graft; Z85.3 Personal history of malignant neoplasm of breast; Z90.12 Acquired absence of left breast and nipple; Z68.22 Body mass index [BMI] 22.0-22.9, adult; Z88.6 Allergy status to analgesic agent; Z88.8 Allergy status to other drugs, medicaments and biological substances
CPT/HCPCS: 32555; 36415; 36569; 36600; 71010; 74230; 76937; 80048; 80053; 80076; 81001; 82270; 82375; 82550; 82553; 82805; 82945; 82962; 83540; 83550; 83615; 83735; 83880; 84100; 84157; 84443; 84484; 84550; 85007; 85025; 85027; 85379; 85610; 85730; 86850; 86900; 86920; 87040; 87070; 87086; 87102; 87106; 87116; 87205; 88108; 88312; 92610; 92611; 93005; 93306; 93970; 94640; 94660; 96374; 96375; 97110; 97163; 97530; 99291; A6261; C1725; C9113; J0696; J1170; J1450; J1650; J1940; J2930; J3370; J3475; J3480; J3490; J7030; J7050; J7070; J7608; J7611; J7620; P9016; A4315

== ENCOUNTER 2017-07-08 16:10 | Inpatient (IN) | payer MEDICARE, MEDICAID ==
[~2017-07-08] VITALS: Ht 147.3 cm; Wt 45.8 kg
[2017-07-08 15:30] VITALS: BP 95/39
[~2017-07-08 16:10] MED LIST changes: +AMIO200T39 PO; +APIX2.5T PO; +DILT180C69 PO; +GABA100C PO; +HYDR-4135 PO; +PRAV40TA PO; +RANI300T4 PO; +TIOT18CA3 IH
[2017-07-08] MEDS ORDERED: CLONIDINE 0.1MG TABLET PO PRN (16:30)
[2017-07-08] MEDS ORDERED: MAGNESIUM HYDROXIDE 400MG/5ML 30ML UDC PO PRN (16:30)
[2017-07-08] MEDS ORDERED: ALBUTEROL (0.083%) 2.5MG/3ML NEB HHN PRN (16:30)
[2017-07-08 16:48] VITALS: BP 95/53
[2017-07-08] MEDS: SPIRONOLACTONE 25MG TABLET PO SCH (17:00)
[2017-07-08] MEDS: AMIODARONE HCL 200 MG TABLET PO SCH (17:24)
[2017-07-08] MEDS: ALBUTEROL (0.083%) 2.5MG/3ML NEB HHN SCH ×2 (19:54→23:35)
[2017-07-08 20:00] VITALS: BP 136/76
[2017-07-08] MEDS: ACETAMINOPHEN 325MG TABLET PO PRN (21:22)
[2017-07-08] MEDS: HYDRALAZINE HCL 50MG TABLET PO SCH (21:35)
[2017-07-08] MEDS: GABAPENTIN 300MG CAPSULE PO SCH (21:35)
[2017-07-08] MEDS: ENOXAPARIN 40MG/0.4ML SYR SUBCUT SCH (21:39)
[2017-07-09] MEDS: ALBUTEROL (0.083%) 2.5MG/3ML NEB HHN SCH ×5 (04:00→20:00)
[2017-07-09] MEDS: LEVOTHYROXINE SODIUM 50MCG TABLET PO SCH (06:29)
[2017-07-09 07:02] LABS: BASOPHILS % 2.2 % (0.0-2.0); EOSINOPHILS % 0.8 % (0.0-5.0); HEMATOCRIT. 28.8 % (36.0-48.0); HEMOGLOBIN. 9.3 g/dL (12.0-16.0); LYMPHOCYTES % 22.8 % (20.0-50.0); MEAN CORPUSCULAR HEMOGLOBIN 27.5 pg (28.0-32.0); MEAN CORPUSCULAR VOLUME 85.5 fL (81.0-99.0); MEAN PLATELET VOLUME 7.4 fl (7.4-10.4); MONOCYTES % 8.4 % (2.0-8.0); NEUTROPHILS % 65.8 % (40.0-76.0); PLATELET 518 x1000/uL (130-400); RED BLOOD CELL COUNT 3.37 mill/uL (4.2-5.4); RED CELL DISTRIBUTION WIDTH 15.7 % (11.6-14.6)
[2017-07-09 07:33] LABS: CARBON DIOXIDE 31 mEq/L (21-32); CHLORIDE 108 mEq/L (98-107)
[2017-07-09 08:00] VITALS: BP 89/50
[2017-07-09] MEDS ORDERED: FAMOTIDINE 20MG/2ML VIAL IV SCH (09:00)
[2017-07-09] MEDS: DILTIAZEM HCL 180MG CAPSULE CD 24HR PO SCH (09:03)
[2017-07-09] MEDS: AMIODARONE HCL 200 MG TABLET PO SCH ×3 (09:04→16:27)
[2017-07-09] MEDS: HYDRALAZINE HCL 50MG TABLET PO SCH ×2 (09:04→21:00)
[2017-07-09] MEDS: SPIRONOLACTONE 25MG TABLET PO SCH ×2 (09:04→16:26)
[2017-07-09] MEDS: DOCUSATE SODIUM 100MG CAPSULE PO SCH ×2 (09:05→16:25)
[2017-07-09] MEDS: ASPIRIN 81MG TABLET PO SCH (09:05)
[2017-07-09] MEDS: ENOXAPARIN 40MG/0.4ML SYR SUBCUT SCH ×2 (09:05→21:35)
[2017-07-09] MEDS ORDERED: TRAMADOL 50MG TABLET PO PRN (14:00)
[2017-07-09 20:00] VITALS: BP 104/42
[2017-07-09] MEDS: GABAPENTIN 300MG CAPSULE PO SCH (21:34)
[2017-07-10] MEDS: ALBUTEROL (0.083%) 2.5MG/3ML NEB HHN SCH ×6 (01:03→20:53)
[2017-07-10] MEDS: LEVOTHYROXINE SODIUM 50MCG TABLET PO SCH (06:41)
[2017-07-10 08:00] VITALS: BP 85/45
[2017-07-10] MEDS: DILTIAZEM HCL 180MG CAPSULE CD 24HR PO SCH (09:00)
[2017-07-10] MEDS: HYDRALAZINE HCL 50MG TABLET PO SCH ×2 (09:00→21:00)
[2017-07-10] MEDS: SPIRONOLACTONE 25MG TABLET PO SCH ×2 (09:00→16:58)
[2017-07-10] MEDS: DOCUSATE SODIUM 100MG CAPSULE PO SCH ×2 (09:19→16:58)
[2017-07-10] MEDS: ASPIRIN 81MG TABLET PO SCH (09:20)
[2017-07-10] MEDS: FAMOTIDINE 20MG TABLET PO SCH (09:20)
[2017-07-10] MEDS: AMIODARONE HCL 200 MG TABLET PO SCH ×3 (09:20→16:58)
[2017-07-10] MEDS: ENOXAPARIN 40MG/0.4ML SYR SUBCUT SCH ×2 (09:20→21:53)
[2017-07-10] MEDS: ACETAMINOPHEN 325MG TABLET PO PRN (14:25)
[2017-07-10 20:00] VITALS: BP 87/55
[2017-07-10] MEDS: GABAPENTIN 300MG CAPSULE PO SCH (21:48)
[2017-07-11] MEDS: ALBUTEROL (0.083%) 2.5MG/3ML NEB HHN SCH ×5 (00:50→20:29)
[2017-07-11] MEDS: LEVOTHYROXINE SODIUM 50MCG TABLET PO SCH (06:55)
[2017-07-11 07:52] VITALS: BP 117/60
[2017-07-11] MEDS: ENOXAPARIN 40MG/0.4ML SYR SUBCUT SCH ×2 (08:31→22:41)
[2017-07-11] MEDS: AMIODARONE HCL 200 MG TABLET PO SCH ×2 (08:45→17:24)
[2017-07-11] MEDS: FAMOTIDINE 20MG TABLET PO SCH (08:45)
[2017-07-11] MEDS: ASPIRIN 81MG TABLET PO SCH (08:45)
[2017-07-11] MEDS: DOCUSATE SODIUM 100MG CAPSULE PO SCH ×2 (08:45→17:24)
[2017-07-11] MEDS: DILTIAZEM HCL 180MG CAPSULE CD 24HR PO SCH (08:47)
[2017-07-11] MEDS: HYDRALAZINE HCL 50MG TABLET PO SCH ×2 (08:54→21:00)
[2017-07-11] MEDS: SPIRONOLACTONE 25MG TABLET PO SCH ×2 (08:55→17:00)
[2017-07-11 20:00] VITALS: BP 112/49
[2017-07-11] MEDS: GABAPENTIN 300MG CAPSULE PO SCH (22:41)
[2017-07-12] MEDS: ALBUTEROL (0.083%) 2.5MG/3ML NEB HHN SCH ×6 (00:34→21:22)
[2017-07-12] MEDS: LEVOTHYROXINE SODIUM 50MCG TABLET PO SCH (06:11)
[2017-07-12 07:38] LABS: BASOPHILS % 3.5 % (0.0-2.0); HEMATOCRIT. 29.2 % (36.0-48.0); HEMOGLOBIN. 9.3 g/dL (12.0-16.0); LYMPHOCYTES % 27.2 % (20.0-50.0); MEAN CORPUSCULAR HEMOGLOBIN 27.4 pg (28.0-32.0); MEAN CORPUSCULAR VOLUME 85.9 fL (81.0-99.0); MEAN PLATELET VOLUME 7.2 fl (7.4-10.4); MONOCYTES % 8.6 % (2.0-8.0); NEUTROPHILS % 58.7 % (40.0-76.0); PLATELET 496 x1000/uL (130-400); RED CELL DISTRIBUTION WIDTH 16.6 % (11.6-14.6)
[2017-07-12 08:00] VITALS: BP 104/60
[2017-07-12] MEDS: DOCUSATE SODIUM 100MG CAPSULE PO SCH ×2 (08:40→16:54)
[2017-07-12] MEDS: FAMOTIDINE 20MG TABLET PO SCH (08:40)
[2017-07-12] MEDS: ASPIRIN 81MG TABLET PO SCH (08:40)
[2017-07-12] MEDS: HYDRALAZINE HCL 50MG TABLET PO SCH ×2 (08:41→21:00)
[2017-07-12] MEDS: DILTIAZEM HCL 180MG CAPSULE CD 24HR PO SCH (08:44)
[2017-07-12] MEDS: ENOXAPARIN 40MG/0.4ML SYR SUBCUT SCH ×2 (08:45→21:18)
[2017-07-12] MEDS: SPIRONOLACTONE 25MG TABLET PO SCH ×2 (08:46→16:33)
[2017-07-12] MEDS: AMIODARONE HCL 200 MG TABLET PO SCH ×3 (08:46→16:54)
[2017-07-12 16:32] VITALS: BP 98/49
[2017-07-12 20:30] VITALS: BP 118/55
[2017-07-12] MEDS: GABAPENTIN 300MG CAPSULE PO SCH (21:19)
[2017-07-13] MEDS: ALBUTEROL (0.083%) 2.5MG/3ML NEB HHN SCH ×6 (01:07→20:34)
[2017-07-13] MEDS: LEVOTHYROXINE SODIUM 50MCG TABLET PO SCH (06:39)
[2017-07-13 08:00] VITALS: BP 116/64
[2017-07-13] MEDS: DILTIAZEM HCL 180MG CAPSULE CD 24HR PO SCH (09:00)
[2017-07-13] MEDS: SPIRONOLACTONE 25MG TABLET PO SCH ×2 (09:00→16:44)
[2017-07-13] MEDS: HYDRALAZINE HCL 50MG TABLET PO SCH ×2 (09:00→21:15)
[2017-07-13] MEDS: DOCUSATE SODIUM 100MG CAPSULE PO SCH ×2 (09:05→16:43)
[2017-07-13] MEDS: FAMOTIDINE 20MG TABLET PO SCH (09:05)
[2017-07-13] MEDS: AMIODARONE HCL 200 MG TABLET PO SCH ×3 (09:05→16:43)
[2017-07-13] MEDS: ASPIRIN 81MG TABLET PO SCH (09:05)
[2017-07-13] MEDS: ENOXAPARIN 40MG/0.4ML SYR SUBCUT SCH ×2 (09:06→21:17)
[2017-07-13] MEDS ORDERED: BISACODYL 5MG TABLET PO PRN ×2 (09:45)
[2017-07-13 20:00] VITALS: BP 121/50
[2017-07-13] MEDS: GABAPENTIN 300MG CAPSULE PO SCH (21:15)
[2017-07-13] MEDS ORDERED: PANTOPRAZOLE 40MG DR TABLET PO NR (22:15)
[2017-07-14] MEDS: ALBUTEROL (0.083%) 2.5MG/3ML NEB HHN SCH ×6 (04:00→21:10)
[2017-07-14] MEDS: LEVOTHYROXINE SODIUM 50MCG TABLET PO SCH (05:50)
[2017-07-14] MEDS ORDERED: PANTOPRAZOLE 40MG DR TABLET PO NR (06:00)
[2017-07-14 08:00] VITALS: BP 117/92
[2017-07-14] MEDS: SPIRONOLACTONE 25MG TABLET PO SCH ×2 (08:47→16:54)
[2017-07-14] MEDS: HYDRALAZINE HCL 50MG TABLET PO SCH ×2 (08:47→21:00)
[2017-07-14] MEDS: AMIODARONE HCL 200 MG TABLET PO SCH ×3 (08:48→16:54)
[2017-07-14] MEDS: DOCUSATE SODIUM 100MG CAPSULE PO SCH ×2 (08:48→16:53)
[2017-07-14] MEDS: FAMOTIDINE 20MG TABLET PO SCH (08:48)
[2017-07-14] MEDS: ASPIRIN 81MG TABLET PO SCH (08:48)
[2017-07-14] MEDS: ENOXAPARIN 40MG/0.4ML SYR SUBCUT SCH ×2 (08:49→22:07)
[2017-07-14] MEDS: DILTIAZEM HCL 180MG CAPSULE CD 24HR PO SCH (09:00)
[2017-07-14 19:00] VITALS: BP 112/56
[2017-07-14] MEDS: GABAPENTIN 300MG CAPSULE PO SCH (22:06)
[2017-07-15] MEDS: ALBUTEROL (0.083%) 2.5MG/3ML NEB HHN SCH ×5 (00:50→21:29)
[2017-07-15] MEDS: LEVOTHYROXINE SODIUM 50MCG TABLET PO SCH (06:18)
[2017-07-15 08:00] VITALS: BP 128/68
[2017-07-15] MEDS: AMIODARONE HCL 200 MG TABLET PO SCH ×3 (08:43→17:32)
[2017-07-15] MEDS: FAMOTIDINE 20MG TABLET PO SCH (08:43)
[2017-07-15] MEDS: ASPIRIN 81MG TABLET PO SCH (08:44)
[2017-07-15] MEDS: DOCUSATE SODIUM 100MG CAPSULE PO SCH ×2 (08:44→17:30)
[2017-07-15] MEDS: HYDRALAZINE HCL 50MG TABLET PO SCH ×2 (08:44→21:00)
[2017-07-15] MEDS: SPIRONOLACTONE 25MG TABLET PO SCH ×2 (08:44→17:31)
[2017-07-15] MEDS: ENOXAPARIN 40MG/0.4ML SYR SUBCUT SCH ×2 (08:45→22:01)
[2017-07-15] MEDS: DILTIAZEM HCL 180MG CAPSULE CD 24HR PO SCH (08:45)
[2017-07-15] MEDS: ASCORBIC ACID 250 MG TABLET PO SCH (17:30)
[2017-07-15 20:00] VITALS: BP 96/40
[2017-07-15] MEDS: GABAPENTIN 300MG CAPSULE PO SCH (22:00)
[2017-07-16] MEDS: ALBUTEROL (0.083%) 2.5MG/3ML NEB HHN SCH ×5 (01:13→20:47)
[2017-07-16] MEDS: PANTOPRAZOLE 40MG DR TABLET PO SCH (05:48)
[2017-07-16] MEDS: LEVOTHYROXINE SODIUM 50MCG TABLET PO SCH (05:48)
[2017-07-16 08:00] VITALS: BP 97/44
[2017-07-16] MEDS: ENOXAPARIN 40MG/0.4ML SYR SUBCUT SCH ×2 (08:45→21:27)
[2017-07-16] MEDS: ASPIRIN 81MG TABLET PO SCH (08:46)
[2017-07-16] MEDS: MULTIVITAMINS,THER W-MINERALS TABLET PO SCH (08:46)
[2017-07-16] MEDS: HYDRALAZINE HCL 50MG TABLET PO SCH (08:46)
[2017-07-16] MEDS: DOCUSATE SODIUM 100MG CAPSULE PO SCH ×2 (08:46→17:32)
[2017-07-16] MEDS: ZINC SULFATE 220 MG ( 50 ) CAPSULE PO SCH (08:46)
[2017-07-16] MEDS: FAMOTIDINE 20MG TABLET PO SCH (08:46)
[2017-07-16] MEDS: ASCORBIC ACID 250 MG TABLET PO SCH ×2 (08:46→17:32)
[2017-07-16] MEDS: DILTIAZEM HCL 180MG CAPSULE CD 24HR PO SCH (08:47)
[2017-07-16] MEDS: AMIODARONE HCL 200 MG TABLET PO SCH ×3 (08:48→17:32)
[2017-07-16] MEDS: SPIRONOLACTONE 25MG TABLET PO SCH ×2 (08:48→17:00)
[2017-07-16 20:00] VITALS: BP 118/53
[2017-07-16] MEDS: HYDRALAZINE HCL 25MG TABLET PO SCH (21:27)
[2017-07-16] MEDS: GABAPENTIN 300MG CAPSULE PO SCH (21:27)
[2017-07-17] MEDS: ALBUTEROL (0.083%) 2.5MG/3ML NEB HHN SCH ×6 (00:42→20:47)
[2017-07-17 06:11] LABS: BASOPHILS % 2.2 % (0.0-2.0); EOSINOPHILS % 4.8 % (0.0-5.0); HEMATOCRIT. 25.4 % (36.0-48.0); HEMOGLOBIN. 8.4 g/dL (12.0-16.0); LYMPHOCYTES % 30.1 % (20.0-50.0); MEAN CORPUSCULAR HEMOGLOBIN 28.2 pg (28.0-32.0); MEAN CORPUSCULAR VOLUME 85.3 fL (81.0-99.0); MEAN PLATELET VOLUME 7.4 fl (7.4-10.4); MONOCYTES % 9.4 % (2.0-8.0); NEUTROPHILS % 53.5 % (40.0-76.0); PLATELET 442 x1000/uL (130-400); RED BLOOD CELL COUNT 2.98 mill/uL (4.2-5.4); RED CELL DISTRIBUTION WIDTH 16.7 % (11.6-14.6)
[2017-07-17] MEDS: PANTOPRAZOLE 40MG DR TABLET PO SCH (06:29)
[2017-07-17] MEDS: LEVOTHYROXINE SODIUM 50MCG TABLET PO SCH (06:29)
[2017-07-17 06:40] LABS: CARBON DIOXIDE 28 mEq/L (21-32); CHLORIDE 110 mEq/L (98-107)
[2017-07-17 08:00] VITALS: BP 125/50
[2017-07-17 08:40] VITALS: BP 147/85
[2017-07-17] MEDS: ASCORBIC ACID 250 MG TABLET PO SCH ×2 (08:45→17:13)
[2017-07-17] MEDS: DOCUSATE SODIUM 100MG CAPSULE PO SCH ×2 (08:45→17:12)
[2017-07-17] MEDS: DILTIAZEM HCL 180MG CAPSULE CD 24HR PO SCH (08:45)
[2017-07-17] MEDS: ZINC SULFATE 220 MG ( 50 ) CAPSULE PO SCH (08:45)
[2017-07-17] MEDS: AMIODARONE HCL 200 MG TABLET PO SCH ×2 (08:45→12:18)
[2017-07-17] MEDS: MULTIVITAMINS,THER W-MINERALS TABLET PO SCH (08:45)
[2017-07-17] MEDS: ASPIRIN 81MG TABLET PO SCH (08:45)
[2017-07-17] MEDS: FAMOTIDINE 20MG TABLET PO SCH (08:46)
[2017-07-17] MEDS: HYDRALAZINE HCL 25MG TABLET PO SCH ×2 (08:46→20:56)
[2017-07-17] MEDS: ENOXAPARIN 40MG/0.4ML SYR SUBCUT SCH (08:46)
[2017-07-17] MEDS: SPIRONOLACTONE 25MG TABLET PO SCH ×2 (08:51→17:00)
[2017-07-17] MEDS: FERROUS SULFATE 325MG TABLET PO SCH (17:12)
[2017-07-17 20:00] VITALS: BP 137/58
[2017-07-17] MEDS: GABAPENTIN 300MG CAPSULE PO SCH (20:56)
[2017-07-18] MEDS: LEVOTHYROXINE SODIUM 50MCG TABLET PO SCH (06:17)
[2017-07-18] MEDS: PANTOPRAZOLE 40MG DR TABLET PO SCH (06:18)
[2017-07-18 06:39] LABS: BASOPHILS % 1.8 % (0.0-2.0); EOSINOPHILS % 3.7 % (0.0-5.0); HEMATOCRIT. 25.1 % (36.0-48.0); HEMOGLOBIN. 8.1 g/dL (12.0-16.0); LYMPHOCYTES % 28.2 % (20.0-50.0); MEAN CORPUSCULAR HEMOGLOBIN 27.6 pg (28.0-32.0); MEAN CORPUSCULAR VOLUME 85.5 fL (81.0-99.0); MEAN PLATELET VOLUME 7.4 fl (7.4-10.4); NEUTROPHILS % 56.3 % (40.0-76.0); PLATELET 427 x1000/uL (130-400); RED BLOOD CELL COUNT 2.94 mill/uL (4.2-5.4); RED CELL DISTRIBUTION WIDTH 17.7 % (11.6-14.6)
[2017-07-18] MEDS: ALBUTEROL (0.083%) 2.5MG/3ML NEB HHN SCH ×4 (07:20→21:03)
[2017-07-18 08:00] VITALS: BP 102/42
[2017-07-18] MEDS: SPIRONOLACTONE 25MG TABLET PO SCH ×2 (08:02→17:00)
[2017-07-18] MEDS: HYDRALAZINE HCL 25MG TABLET PO SCH ×2 (08:02→21:58)
[2017-07-18] MEDS: DILTIAZEM HCL 180MG CAPSULE CD 24HR PO SCH (08:03)
[2017-07-18] MEDS ORDERED: AMIODARONE HCL 200 MG TABLET PO SCH (09:00)
[2017-07-18] MEDS: FAMOTIDINE 20MG TABLET PO SCH (09:45)
[2017-07-18] MEDS: FERROUS SULFATE 325MG TABLET PO SCH ×3 (09:45→17:29)
[2017-07-18] MEDS: ZINC SULFATE 220 MG ( 50 ) CAPSULE PO SCH (09:46)
[2017-07-18] MEDS: ASCORBIC ACID 500 MG TABLET PO SCH (09:46)
[2017-07-18] MEDS: MULTIVITAMINS,THER W-MINERALS TABLET PO SCH (09:47)
[2017-07-18] MEDS: DOCUSATE SODIUM 100MG CAPSULE PO SCH ×2 (09:47→17:29)
[2017-07-18] MEDS: DILTIAZEM HCL 60MG TABLET PO SCH ×2 (14:00→22:00)
[2017-07-18] MEDS: AMIODARONE HCL 200 MG TABLET PO SCH (17:29)
[2017-07-18 20:00] VITALS: BP 144/79
[2017-07-18] MEDS: GABAPENTIN 300MG CAPSULE PO SCH (21:57)
[2017-07-19] MEDS: DILTIAZEM HCL 60MG TABLET PO SCH ×3 (05:36→21:26)
[2017-07-19] MEDS: PANTOPRAZOLE 40MG DR TABLET PO SCH (06:19)
[2017-07-19] MEDS: LEVOTHYROXINE SODIUM 50MCG TABLET PO SCH (06:19)
[2017-07-19 06:29] LABS: BASOPHILS % 1.9 % (0.0-2.0); EOSINOPHILS % 4.6 % (0.0-5.0); HEMATOCRIT. 26.2 % (36.0-48.0); HEMOGLOBIN. 8.7 g/dL (12.0-16.0); LYMPHOCYTES % 28.1 % (20.0-50.0); MEAN CORPUSCULAR HEMOGLOBIN 28.6 pg (28.0-32.0); MEAN CORPUSCULAR VOLUME 85.6 fL (81.0-99.0); MEAN PLATELET VOLUME 7.4 fl (7.4-10.4); MONOCYTES % 9.1 % (2.0-8.0); NEUTROPHILS % 56.3 % (40.0-76.0); PLATELET 424 x1000/uL (130-400); RED BLOOD CELL COUNT 3.06 mill/uL (4.2-5.4); RED CELL DISTRIBUTION WIDTH 18.3 % (11.6-14.6)
[2017-07-19 07:34] LABS: CHLORIDE 108 mEq/L (98-107)
[2017-07-19] MEDS: ALBUTEROL (0.083%) 2.5MG/3ML NEB HHN SCH ×2 (07:37→22:05)
[2017-07-19 07:40] LABS: CARBON DIOXIDE 25 mEq/L (21-32)
[2017-07-19 08:00] VITALS: BP 143/83
[2017-07-19] MEDS: MULTIVITAMINS,THER W-MINERALS TABLET PO SCH (08:41)
[2017-07-19] MEDS: DOCUSATE SODIUM 100MG CAPSULE PO SCH ×2 (08:41→16:47)
[2017-07-19] MEDS: FERROUS SULFATE 325MG TABLET PO SCH ×3 (08:41→16:47)
[2017-07-19] MEDS: ZINC SULFATE 220 MG ( 50 ) CAPSULE PO SCH (08:41)
[2017-07-19] MEDS: FAMOTIDINE 20MG TABLET PO SCH (08:41)
[2017-07-19] MEDS: HYDRALAZINE HCL 25MG TABLET PO SCH ×2 (08:42→21:26)
[2017-07-19] MEDS: SPIRONOLACTONE 25MG TABLET PO SCH ×2 (08:42→16:43)
[2017-07-19] MEDS: AMIODARONE HCL 200 MG TABLET PO SCH ×3 (08:42→16:47)
[2017-07-19] MEDS: ASCORBIC ACID 500 MG TABLET PO SCH (08:42)
[2017-07-19 20:00] VITALS: BP 115/54
[2017-07-19] MEDS: GABAPENTIN 300MG CAPSULE PO SCH (21:27)
[2017-07-20] MEDS: DILTIAZEM HCL 60MG TABLET PO SCH ×3 (06:44→21:28)
[2017-07-20] MEDS: LEVOTHYROXINE SODIUM 50MCG TABLET PO SCH (06:44)
[2017-07-20] MEDS: PANTOPRAZOLE 40MG DR TABLET PO SCH (06:45)
[2017-07-20] MEDS: ALBUTEROL (0.083%) 2.5MG/3ML NEB HHN SCH ×4 (07:54→19:59)
[2017-07-20 08:00] VITALS: BP 126/57
[2017-07-20] MEDS: FERROUS SULFATE 325MG TABLET PO SCH ×3 (09:25→17:11)
[2017-07-20] MEDS: DOCUSATE SODIUM 100MG CAPSULE PO SCH ×2 (09:25→17:11)
[2017-07-20] MEDS: MULTIVITAMINS,THER W-MINERALS TABLET PO SCH (09:25)
[2017-07-20] MEDS: AMIODARONE HCL 200 MG TABLET PO SCH ×3 (09:26→17:11)
[2017-07-20] MEDS: ASCORBIC ACID 500 MG TABLET PO SCH (09:26)
[2017-07-20] MEDS: FAMOTIDINE 20MG TABLET PO SCH (09:26)
[2017-07-20] MEDS: HYDRALAZINE HCL 25MG TABLET PO SCH ×2 (09:26→21:28)
[2017-07-20] MEDS: SPIRONOLACTONE 25MG TABLET PO SCH ×2 (09:26→16:46)
[2017-07-20] MEDS: ZINC SULFATE 220 MG ( 50 ) CAPSULE PO SCH (09:26)
[2017-07-20 20:00] VITALS: BP 150/84
[2017-07-20] MEDS: GABAPENTIN 300MG CAPSULE PO SCH (21:28)
[2017-07-21] MEDS: LEVOTHYROXINE SODIUM 50MCG TABLET PO SCH (07:21)
[2017-07-21] MEDS: PANTOPRAZOLE 40MG DR TABLET PO SCH (07:21)
[2017-07-21] MEDS: DILTIAZEM HCL 60MG TABLET PO SCH (07:26)
[2017-07-21 08:00] VITALS: BP 130/62
[2017-07-21] MEDS: ASCORBIC ACID 500 MG TABLET PO SCH (08:32)
[2017-07-21] MEDS: ZINC SULFATE 220 MG ( 50 ) CAPSULE PO SCH (08:32)
[2017-07-21] MEDS: AMIODARONE HCL 200 MG TABLET PO SCH (08:33)
[2017-07-21] MEDS: HYDRALAZINE HCL 25MG TABLET PO SCH ×2 (08:33→21:00)
[2017-07-21] MEDS: FERROUS SULFATE 325MG TABLET PO SCH ×3 (08:33→17:48)
[2017-07-21] MEDS: DOCUSATE SODIUM 100MG CAPSULE PO SCH ×2 (08:33→17:48)
[2017-07-21] MEDS: MULTIVITAMINS,THER W-MINERALS TABLET PO SCH (08:33)
[2017-07-21] MEDS: SPIRONOLACTONE 25MG TABLET PO SCH ×2 (08:33→17:00)
[2017-07-21 09:16] LABS: HEMATOCRIT 32.4 % (36.0-48.0); HEMOGLOBIN 10.6 g/dL (12.0-16.0); MEAN CORPUSCULAR HEMOGLOBIN 27.9 pg (28.0-32.0); MEAN CORPUSCULAR VOLUME 85.3 fL (81.0-99.0); PLATELET 543 x1000/uL (130-400); RED CELL DISTRIBUTION WIDTH 18.6 % (11.6-14.6)
[2017-07-21] MEDS: ALBUTEROL (0.083%) 2.5MG/3ML NEB HHN SCH ×4 (09:20→19:45)
[2017-07-21 09:31] LABS: CARBON DIOXIDE 28 mEq/L (21-32); CHLORIDE 108 mEq/L (98-107)
[2017-07-21] MEDS: APIXABAN 2.5 MG TABLET PO SCH ×2 (11:13→17:48)
[2017-07-21 19:00] VITALS: BP 96/46
[2017-07-21] MEDS: GABAPENTIN 300MG CAPSULE PO SCH (21:18)
[2017-07-22] MEDS: PANTOPRAZOLE 40MG DR TABLET PO SCH (06:24)
[2017-07-22] MEDS: LEVOTHYROXINE SODIUM 50MCG TABLET PO SCH (06:24)
[2017-07-22 08:00] VITALS: BP 114/53
[2017-07-22] MEDS: ALBUTEROL (0.083%) 2.5MG/3ML NEB HHN SCH (08:02)
[2017-07-22] MEDS: MULTIVITAMINS,THER W-MINERALS TABLET PO SCH (08:32)
[2017-07-22] MEDS: ZINC SULFATE 220 MG ( 50 ) CAPSULE PO SCH (08:32)
[2017-07-22] MEDS: ASCORBIC ACID 500 MG TABLET PO SCH (08:32)
[2017-07-22] MEDS: FERROUS SULFATE 325MG TABLET PO SCH (08:32)
[2017-07-22] MEDS: DOCUSATE SODIUM 100MG CAPSULE PO SCH (08:32)
[2017-07-22] MEDS: HYDRALAZINE HCL 25MG TABLET PO SCH (08:33)
[2017-07-22] MEDS: SPIRONOLACTONE 25MG TABLET PO SCH (08:33)
[2017-07-22] MEDS: APIXABAN 2.5 MG TABLET PO SCH (08:33)
[2017-07-22] MEDS ORDERED: AMIODARONE HCL 200 MG TABLET PO SCH (09:00)
[2017-07-22] MEDS ORDERED: DILTIAZEM HCL 180MG CAPSULE CD 24HR PO SCH (09:00)
[2017-07-22 12:02] VITALS: BP 114/53
== END 2017-07-22 13:30 | disposition home health service (06) | DRG 91 ==
PROVIDERS: ADMIT Psychiatry & Neurology Neurology; ATTEND Specialist
DX: G72.81 Critical illness myopathy (principal); I50.21 Acute systolic (congestive) heart failure; J96.20 Acute and chronic respiratory failure, unspecified whether with hypoxia or hypercapnia; E43 Unspecified severe protein-calorie malnutrition; G62.81 Critical illness polyneuropathy; B49 Unspecified mycosis; J44.1 Chronic obstructive pulmonary disease with (acute) exacerbation; I48.92 Unspecified atrial flutter; I42.1 Obstructive hypertrophic cardiomyopathy; I48.0 Paroxysmal atrial fibrillation; N39.0 Urinary tract infection, site not specified; I47.1 Supraventricular tachycardia; E83.42 Hypomagnesemia; I48.2 Chronic atrial fibrillation; G62.9 Polyneuropathy, unspecified; R13.10 Dysphagia, unspecified; E03.9 Hypothyroidism, unspecified; I11.0 Hypertensive heart disease with heart failure; E78.5 Hyperlipidemia, unspecified; K21.9 Gastro-esophageal reflux disease without esophagitis; I25.10 Atherosclerotic heart disease of native coronary artery without angina pectoris; M54.16 Radiculopathy, lumbar region; K57.90 Diverticulosis of intestine, part unspecified, without perforation or abscess without bleeding; G89.29 Other chronic pain; D50.9 Iron deficiency anemia, unspecified; K44.9 Diaphragmatic hernia without obstruction or gangrene; Z90.10 Acquired absence of unspecified breast and nipple; Z85.3 Personal history of malignant neoplasm of breast; Z79.899 Other long term (current) drug therapy; Z88.8 Allergy status to other drugs, medicaments and biological substances; Z88.6 Allergy status to analgesic agent; R15.9 Full incontinence of feces; D72.829 Elevated white blood cell count, unspecified; R53.81 Other malaise; Z85.21 Personal history of malignant neoplasm of larynx; Z68.21 Body mass index [BMI] 21.0-21.9, adult
CPT/HCPCS: 36415; 71020; 74230; 80048; 82040; 82270; 83735; 84134; 85025; 85027; 86850; 86900; 92610; 92611; 93005; 94640; 97110; 97116; 97163; 97166; 97530; 97535; J1650; J3490; J7611

== ENCOUNTER 2019-10-01 17:45 | Inpatient (IN) | payer MEDICARE, MEDICAID ==
[~2019-10-01] VITALS: Ht 149.9 cm; Wt 50.5 kg
[~2019-10-01 17:45] MED LIST changes: -AMIO200T39 PO; -ASPI-1159 PO; +ASPI-1393 PO; -BIMA2.5D4 EACHEYE; -DILT180C69 PO; +FLUT15.88 BOTHNSTRLS; -FLUT1AER; -FURO-152 PO; +GABA-529 PO; -GABA-531 PO; -GABA100C PO; -HYDR-4134 PO; -HYDR-4135 PO; +LEVO50TA PO; -LEVO50TA70 PO; -POTA20TA75 PO; -PRAV40TA PO; -PRAV40TA58 PO; -RANI300T4 PO; -SPIR25TA4 PO; +SPIR25TA6 PO; +TYLENOL #4 PO
[2019-10-01] MEDS ORDERED: METHYLPREDNISOLONE SOD SUCC 125 MG/2 ML VIAL IV STA (19:14)
[2019-10-01] MEDS ORDERED: LEVOFLOXACIN 500MG PREMIX 100 ML IV ONE (19:15)
[2019-10-01] MEDS ORDERED: IPRATROPIUM/ALBUTEROL 0.5-3(2.5)MG/3ML NEB HHN ONE (19:15)
[2019-10-01 19:36] LABS: CHLORIDE 109 mEq/L (98-107)
[2019-10-01 19:39] LABS: INR 1.2; PARTIAL THROMBOPLASTIN TIME 23.6 sec (23.4-31.0); PROTHROMBIN TIME 12.6 sec (9.6-11.0)
[2019-10-01 19:45] LABS: EOSINOPHILS % 0.9 % (0.0-5.0); HEMATOCRIT. 45.6 % (36.0-48.0); HEMOGLOBIN. 14.3 g/dL (12.0-16.0); LYMPHOCYTES % 19.7 % (20.0-50.0); MEAN CORPUSCULAR HEMOGLOBIN 29.3 pg (28.0-32.0); MEAN CORPUSCULAR VOLUME 93.5 fL (81.0-99.0); MEAN PLATELET VOLUME 7.7 fl (7.4-10.4); MONOCYTES % 6.6 % (2.0-8.0); NEUTROPHILS % 71.8 % (40.0-76.0); PLATELET 327 x1000/uL (130-400); RED BLOOD CELL COUNT 4.88 mill/uL (4.2-5.4); RED CELL DISTRIBUTION WIDTH 16.8 % (11.6-14.6)
[2019-10-01 20:16] LABS: BG BASE EXCESS -6.5 mmol/L (-2.0-2.0); BG CARBOXYHEMOGLOBIN 1.1 % (0.5-1.5); BG DEOXYHEMOGLOBIN 6.9 % (0.0-5.0); BG FRACTION INSPIRED OXYGEN 21; BG HCO3 ACT 16.7 mmol/L (22.0-26.0); BG METHEMOGLOBIN 0.3 % (0.0-1.5); BG OXYHEMOGLOBIN 91.7 % (94.0-97.0); BG PCO2 27.7 mmHg (35.0-45.0); BG PH 7.399 (7.350-7.450); BG PO2 67.5 mmHg (75.0-100.0); BG SAMPLE SITE RIGHT BRACHIAL; BG TOTAL HEMOGLOBIN 13.7 g/dL (12.0-18.0); BG VENT MODE ROOM AIR
[2019-10-01] MEDS ORDERED: ACETAMINOPHEN 325MG TABLET PO ONE ×2 (21:00→21:15)
[2019-10-02 01:00] VITALS: BP 120/66
[2019-10-02] MEDS ORDERED: CLONIDINE 0.1MG TABLET PO PRN (02:33)
[2019-10-02] MEDS: IPRATROPIUM/ALBUTEROL 0.5-3(2.5)MG/3ML NEB HHN SCH ×5 (04:00→20:46)
[2019-10-02] MEDS: DILTIAZEM HCL 120MG CAPSULE CD 24HR PO SCH (06:48)
[2019-10-02] MEDS: METHYLPREDNISOLONE SOD SUCC 40 MG/ML VIAL IV SCH ×3 (06:48→20:56)
[2019-10-02 07:28] LABS: CHLORIDE 108 mEq/L (98-107)
[2019-10-02 08:00] VITALS: BP 131/71
[2019-10-02] MEDS: SPIRONOLACTONE 25MG TABLET PO SCH (09:21)
[2019-10-02 10:36] LABS: HEMATOCRIT. 39.1 % (36.0-48.0); MEAN PLATELET VOLUME 8.1 fl (7.4-10.4); PLATELET 292 x1000/uL (130-400); RED BLOOD CELL COUNT 4.34 mill/uL (4.2-5.4); RED CELL DISTRIBUTION WIDTH 15.9 % (11.6-14.6)
[2019-10-02] MEDS: AZITHROMYCIN 500 MG in DEXT 5% WATER 250 ML IV SCH (10:59)
[2019-10-02 11:34] LABS: PLATELET ESTIMATE NORMAL
[2019-10-02 12:00] VITALS: BP 128/62
[2019-10-02 12:24] LABS: T4 FREE 0.88 ng/dL (0.76-1.46)
[2019-10-02 16:00] VITALS: BP 131/67
[2019-10-02 17:58] LABS: CARCINO EMBRYONIC ANTIGEN 1.7 ng/ml
[2019-10-02 19:33] LABS: TOTAL IRON BINDING CAPACITY 298 ug/dL (250-450)
[2019-10-02 19:50] LABS: FERRITIN 108 ng/mL (10-291)
[2019-10-02 19:52] LABS: FOLIC ACID (FOLATE) SERUM > 20.00 ng/mL (>5.38)
[2019-10-02 20:00] VITALS: BP 132/90
[2019-10-02] MEDS: GABAPENTIN 100MG CAPSULE PO SCH (20:55)
[2019-10-02] MEDS: MIRTAZAPINE 15MG TABLET PO SCH (20:55)
[2019-10-03] VITALS: BP 123/57
[2019-10-03] MEDS: IPRATROPIUM/ALBUTEROL 0.5-3(2.5)MG/3ML NEB HHN SCH ×6 (00:51→21:42)
[2019-10-03 04:00] VITALS: BP 136/77
[2019-10-03] MEDS: METHYLPREDNISOLONE SOD SUCC 40 MG/ML VIAL IV SCH ×3 (06:07→21:58)
[2019-10-03 06:08] LABS: HEMATOCRIT. 40.5 % (36.0-48.0); HEMOGLOBIN. 13.4 g/dL (12.0-16.0); MEAN CORPUSCULAR HEMOGLOBIN 29.6 pg (28.0-32.0); MEAN CORPUSCULAR VOLUME 89.6 fL (81.0-99.0); MEAN PLATELET VOLUME 8.3 fl (7.4-10.4); PLATELET 280 x1000/uL (130-400); RED BLOOD CELL COUNT 4.52 mill/uL (4.2-5.4); RED CELL DISTRIBUTION WIDTH 16.6 % (11.6-14.6)
[2019-10-03 06:48] LABS: CHLORIDE 108 mEq/L (98-107)
[2019-10-03 08:00] VITALS: BP 150/73
[2019-10-03] MEDS ORDERED: DIGOXIN 500MCG/2ML AMP IV PRN (08:15)
[2019-10-03] MEDS ORDERED: DIGOXIN 500MCG/2ML AMP IV NR ×2 (08:15→12:50)
[2019-10-03] MEDS: SPIRONOLACTONE 25MG TABLET PO SCH (08:39)
[2019-10-03] MEDS: DILTIAZEM HCL 120MG CAPSULE CD 24HR PO SCH (08:39)
[2019-10-03] MEDS: AZITHROMYCIN 500 MG in DEXT 5% WATER 250 ML IV SCH (09:07)
[2019-10-03 12:00] VITALS: BP 147/66
[2019-10-03 13:33] LABS: PLATELET ESTIMATE NORMAL
[2019-10-03] MEDS: DEXT 5%/0.45% NACL 1000ML 1,000 ML IV SCH (13:53)
[2019-10-03 16:00] VITALS: BP 163/70
[2019-10-03 20:00] VITALS: BP 163/67
[2019-10-03] MEDS: GABAPENTIN 100MG CAPSULE PO SCH (21:57)
[2019-10-03] MEDS: MIRTAZAPINE 15MG TABLET PO SCH (21:57)
[2019-10-04] VITALS: BP 161/74
[2019-10-04] MEDS: IPRATROPIUM/ALBUTEROL 0.5-3(2.5)MG/3ML NEB HHN SCH ×6 (01:48→20:23)
[2019-10-04 04:00] VITALS: BP 164/73
[2019-10-04] MEDS: ACETAMINOPHEN 325MG TABLET PO PRN (04:26)
[2019-10-04] MEDS ORDERED: SODIUM BICARBONATE 4% (2.4MEQ) 5ML VIAL IV ONE (08:15)
[2019-10-04] MEDS ORDERED: LIDOCAINE HCL 1% 20ML VIAL (Pyxis) INJ ONE (08:15)
[2019-10-04] MEDS ORDERED: HEPARIN 100 UNITS/1 ML VIAL IVF PRN (09:15)
[2019-10-04] MEDS: DEXT 5%/0.45% NACL 1000ML 1,000 ML IV SCH ×2 (10:41→17:01)
[2019-10-04] MEDS: SPIRONOLACTONE 25MG TABLET PO SCH (10:42)
[2019-10-04] MEDS: DILTIAZEM HCL 120MG CAPSULE CD 24HR PO SCH (10:42)
[2019-10-04] MEDS: METHYLPREDNISOLONE SOD SUCC 40 MG/ML VIAL IV SCH ×3 (10:42→21:35)
[2019-10-04] MEDS: AZITHROMYCIN 500 MG in DEXT 5% WATER 250 ML IV SCH (10:43)
[2019-10-04] MEDS: MEGESTROL ACETATE 400 MG/10 ML UDC PO SCH (10:43)
[2019-10-04 12:30] VITALS: BP 145/76
[2019-10-04 14:00] LABS: CHLORIDE 108 mEq/L (98-107)
[2019-10-04 16:00] VITALS: BP 155/74
[2019-10-04 16:06] LABS: HEMATOCRIT. 44.9 % (36.0-48.0); HEMOGLOBIN. 14.8 g/dL (12.0-16.0); MEAN CORPUSCULAR HEMOGLOBIN 29.6 pg (28.0-32.0); MEAN CORPUSCULAR VOLUME 89.7 fL (81.0-99.0); MEAN PLATELET VOLUME 8.7 fl (7.4-10.4); PLATELET 275 x1000/uL (130-400); RED BLOOD CELL COUNT 5.01 mill/uL (4.2-5.4); RED CELL DISTRIBUTION WIDTH 15.8 % (11.6-14.6)
[2019-10-04 16:33] LABS: PLATELET ESTIMATE NORMAL
[2019-10-04] MEDS: DIGOXIN 125MCG TABLET PO SCH (17:01)
[2019-10-04] MEDS: ENOXAPARIN 40MG/0.4ML SYR SUBCUT SCH (17:03)
[2019-10-04 20:00] VITALS: BP 169/99
[2019-10-04] MEDS: GABAPENTIN 100MG CAPSULE PO SCH (21:35)
[2019-10-04] MEDS: MIRTAZAPINE 15MG TABLET PO SCH (21:35)
[2019-10-05] VITALS (7 sets, daily range): BP systolic 140–170; BP diastolic 70–98
[2019-10-05] MEDS: IPRATROPIUM/ALBUTEROL 0.5-3(2.5)MG/3ML NEB HHN SCH ×6 (00:27→19:57)
[2019-10-05] MEDS: ENOXAPARIN 40MG/0.4ML SYR SUBCUT SCH ×2 (05:16→16:18)
[2019-10-05] MEDS: METHYLPREDNISOLONE SOD SUCC 40 MG/ML VIAL IV SCH ×3 (05:16→21:31)
[2019-10-05] MEDS: DEXT 5%/0.45% NACL 1000ML 1,000 ML IV SCH ×3 (05:17→21:34)
[2019-10-05] MEDS: MEGESTROL ACETATE 400 MG/10 ML UDC PO SCH (08:57)
[2019-10-05] MEDS: DILTIAZEM HCL 120MG CAPSULE CD 24HR PO SCH (08:58)
[2019-10-05] MEDS: SPIRONOLACTONE 25MG TABLET PO SCH (08:58)
[2019-10-05] MEDS: AZITHROMYCIN 500 MG in DEXT 5% WATER 250 ML IV SCH (10:29)
[2019-10-05] MEDS: ASPIRIN 81MG EC TABLET PO SCH (11:54)
[2019-10-05] MEDS: DILTIAZEM HCL 180MG CAPSULE CD 24HR PO SCH ×2 (11:54→21:30)
[2019-10-05] MEDS: DOCUSATE SODIUM 100MG CAPSULE PO SCH (16:18)
[2019-10-05] MEDS: DIGOXIN 125MCG TABLET PO SCH (17:44)
[2019-10-05] MEDS: MIRTAZAPINE 15MG TABLET PO SCH (21:30)
[2019-10-05] MEDS: GABAPENTIN 100MG CAPSULE PO SCH (21:30)
[2019-10-06] VITALS: BP 142/66
[2019-10-06] MEDS: IPRATROPIUM/ALBUTEROL 0.5-3(2.5)MG/3ML NEB HHN SCH ×6 (01:13→21:35)
[2019-10-06 04:00] VITALS: BP 157/72
[2019-10-06] MEDS: ENOXAPARIN 40MG/0.4ML SYR SUBCUT SCH ×2 (04:39→14:38)
[2019-10-06] MEDS: ACETAMINOPHEN 325MG TABLET PO PRN (06:14)
[2019-10-06] MEDS: METHYLPREDNISOLONE SOD SUCC 40 MG/ML VIAL IV SCH ×3 (06:14→22:30)
[2019-10-06 07:31] LABS: HEMATOCRIT. 41.1 % (36.0-48.0); HEMOGLOBIN. 13.6 g/dL (12.0-16.0); MEAN CORPUSCULAR HEMOGLOBIN 29.5 pg (28.0-32.0); MEAN CORPUSCULAR VOLUME 89.2 fL (81.0-99.0); MEAN PLATELET VOLUME 8.7 fl (7.4-10.4); PLATELET 217 x1000/uL (130-400); RED BLOOD CELL COUNT 4.61 mill/uL (4.2-5.4); RED CELL DISTRIBUTION WIDTH 15.8 % (11.6-14.6)
[2019-10-06 07:59] LABS: CHLORIDE 102 mEq/L (98-107)
[2019-10-06 08:00] VITALS: BP 153/71
[2019-10-06] MEDS: DOCUSATE SODIUM 100MG CAPSULE PO SCH ×2 (10:37→17:51)
[2019-10-06] MEDS: MEGESTROL ACETATE 400 MG/10 ML UDC PO SCH (10:37)
[2019-10-06] MEDS: DILTIAZEM HCL 180MG CAPSULE CD 24HR PO SCH ×2 (10:37→22:30)
[2019-10-06] MEDS: ASPIRIN 81MG EC TABLET PO SCH (10:37)
[2019-10-06] MEDS: SPIRONOLACTONE 25MG TABLET PO SCH (10:38)
[2019-10-06 11:09] LABS: PLATELET ESTIMATE NORMAL
[2019-10-06 12:00] VITALS: BP 154/82
[2019-10-06] MEDS: AZITHROMYCIN 500 MG in DEXT 5% WATER 250 ML IV SCH (12:27)
[2019-10-06 16:00] VITALS: BP 145/69
[2019-10-06] MEDS: DIGOXIN 125MCG TABLET PO SCH (17:50)
[2019-10-06 20:00] VITALS: BP 148/75
[2019-10-06] MEDS: GABAPENTIN 100MG CAPSULE PO SCH (22:30)
[2019-10-06] MEDS: DEXT 5%/0.45% NACL 1000ML 1,000 ML IV SCH (22:30)
[2019-10-06] MEDS: MIRTAZAPINE 15MG TABLET PO SCH (22:30)
[2019-10-07] VITALS: BP 154/66
[2019-10-07] MEDS: IPRATROPIUM/ALBUTEROL 0.5-3(2.5)MG/3ML NEB HHN SCH ×6 (00:49→19:40)
[2019-10-07 04:00] VITALS: BP 157/86
[2019-10-07] MEDS: ENOXAPARIN 40MG/0.4ML SYR SUBCUT SCH (04:00)
[2019-10-07] MEDS: METHYLPREDNISOLONE SOD SUCC 40 MG/ML VIAL IV SCH ×2 (06:38→13:47)
[2019-10-07 07:17] LABS: HEMATOCRIT. 38.7 % (36.0-48.0); HEMOGLOBIN. 12.9 g/dL (12.0-16.0); MEAN CORPUSCULAR HEMOGLOBIN 29.6 pg (28.0-32.0); MEAN CORPUSCULAR VOLUME 88.5 fL (81.0-99.0); MEAN PLATELET VOLUME 8.5 fl (7.4-10.4); PLATELET 253 x1000/uL (130-400); RED BLOOD CELL COUNT 4.38 mill/uL (4.2-5.4); RED CELL DISTRIBUTION WIDTH 15.2 % (11.6-14.6)
[2019-10-07 07:21] LABS: CHLORIDE 106 mEq/L (98-107)
[2019-10-07 08:00] VITALS: BP 161/82
[2019-10-07] MEDS: DOCUSATE SODIUM 100MG CAPSULE PO SCH ×2 (09:59→17:45)
[2019-10-07] MEDS: DILTIAZEM HCL 180MG CAPSULE CD 24HR PO SCH ×2 (09:59→21:38)
[2019-10-07] MEDS: AZITHROMYCIN 500 MG in DEXT 5% WATER 250 ML IV SCH (09:59)
[2019-10-07] MEDS: ASPIRIN 81MG EC TABLET PO SCH (09:59)
[2019-10-07] MEDS: SPIRONOLACTONE 25MG TABLET PO SCH (09:59)
[2019-10-07] MEDS: MEGESTROL ACETATE 400 MG/10 ML UDC PO SCH (09:59)
[2019-10-07] MEDS: ACETAMINOPHEN 325MG TABLET PO PRN (11:24)
[2019-10-07 11:34] LABS: PLATELET ESTIMATE NORMAL
[2019-10-07 12:00] VITALS: BP 140/71
[2019-10-07 16:00] VITALS: BP 152/65
[2019-10-07] MEDS: DIGOXIN 125MCG TABLET PO SCH (17:46)
[2019-10-07] MEDS: DEXT 5%/0.45% NACL 1000ML 1,000 ML IV SCH (17:46)
[2019-10-07] MEDS ORDERED: ENOXAPARIN 40MG/0.4ML SYR SUBCUT SCH (18:00)
[2019-10-07 20:00] VITALS: BP 166/75
[2019-10-07] MEDS ORDERED: METHYLPREDNISOLONE SOD SUCC 40 MG/ML VIAL IV SCH (21:00)
[2019-10-07] MEDS: GABAPENTIN 100MG CAPSULE PO SCH (21:36)
[2019-10-07] MEDS: MIRTAZAPINE 15MG TABLET PO SCH (21:37)
[2019-10-08] VITALS: BP 160/70
[2019-10-08] MEDS: IPRATROPIUM/ALBUTEROL 0.5-3(2.5)MG/3ML NEB HHN SCH ×4 (00:25→11:50)
[2019-10-08 04:00] VITALS: BP 151/69
[2019-10-08 08:00] VITALS: BP 165/76
[2019-10-08] MEDS: MEGESTROL ACETATE 400 MG/10 ML UDC PO SCH (08:10)
[2019-10-08] MEDS: ASPIRIN 81MG EC TABLET PO SCH (08:10)
[2019-10-08] MEDS: DOCUSATE SODIUM 100MG CAPSULE PO SCH (08:11)
[2019-10-08] MEDS: SPIRONOLACTONE 25MG TABLET PO SCH (08:11)
[2019-10-08] MEDS: DILTIAZEM HCL 180MG CAPSULE CD 24HR PO SCH (08:11)
[2019-10-08] MEDS ORDERED: PREDNISONE 20MG TABLET PO SCH (09:00)
[2019-10-08] MEDS: AZITHROMYCIN 500 MG in DEXT 5% WATER 250 ML IV SCH (09:00)
[2019-10-08] MEDS: ACETAMINOPHEN 325MG TABLET PO PRN (10:07)
[2019-10-08 11:00] VITALS: BP 165/76
[2019-10-08 12:00] VITALS: BP 146/63
[2019-10-08] MEDS: DEXT 5%/0.45% NACL 1000ML 1,000 ML IV SCH (13:07)
[2019-10-08] MEDS ORDERED: ONDANSETRON HCL 4MG/2ML INJ IV PRN (13:15)
== END 2019-10-08 15:26 | disposition home health service (06) | DRG 291 ==
LOC: ER 18:02 → EDBEDREQ 19:43 → 8WST 21:59 → EDBEDREQ 22:02 → EDBEDREQTM 22:02 → ENRESERV 23:19 → 8WST 10-02 00:59
PROVIDERS: ADMIT Specialist; ATTEND Specialist
PROC: 02HV33Z Insertion of Infusion Device into Superior Vena Cava, Percutaneous Approach (ICD-10-PCS; principal; 2019-10-04)
PROC: B5181ZA Fluoroscopy of Superior Vena Cava using Low Osmolar Contrast, Guidance (ICD-10-PCS; 2019-10-04)
DX: I13.0 Hypertensive heart and chronic kidney disease with heart failure and stage 1 through stage 4 chronic kidney disease, or unspecified chronic kidney disease (principal); J96.21 Acute and chronic respiratory failure with hypoxia; I50.43 Acute on chronic combined systolic (congestive) and diastolic (congestive) heart failure; E46 Unspecified protein-calorie malnutrition; I48.20 Chronic atrial fibrillation, unspecified; D68.59 Other primary thrombophilia; I47.1 Supraventricular tachycardia; J44.1 Chronic obstructive pulmonary disease with (acute) exacerbation; I42.2 Other hypertrophic cardiomyopathy; K62.3 Rectal prolapse; E03.9 Hypothyroidism, unspecified; I27.20 Pulmonary hypertension, unspecified; K21.9 Gastro-esophageal reflux disease without esophagitis; M41.84 Other forms of scoliosis, thoracic region; G62.9 Polyneuropathy, unspecified; F41.9 Anxiety disorder, unspecified; F17.210 Nicotine dependence, cigarettes, uncomplicated; Z60.2 Problems related to living alone; F39 Unspecified mood [affective] disorder; N18.9 Chronic kidney disease, unspecified; E78.5 Hyperlipidemia, unspecified; I25.10 Atherosclerotic heart disease of native coronary artery without angina pectoris; E86.0 Dehydration; I65.29 Occlusion and stenosis of unspecified carotid artery; R62.7 Adult failure to thrive; E78.00 Pure hypercholesterolemia, unspecified; M19.90 Unspecified osteoarthritis, unspecified site; K57.90 Diverticulosis of intestine, part unspecified, without perforation or abscess without bleeding; F32.9 Major depressive disorder, single episode, unspecified; D63.8 Anemia in other chronic diseases classified elsewhere; Z99.81 Dependence on supplemental oxygen; Z90.710 Acquired absence of both cervix and uterus; Z95.5 Presence of coronary angioplasty implant and graft; Z68.22 Body mass index [BMI] 22.0-22.9, adult; Z85.3 Personal history of malignant neoplasm of breast; Z85.819 Personal history of malignant neoplasm of unspecified site of lip, oral cavity, and pharynx; Z79.01 Long term (current) use of anticoagulants; Z79.899 Other long term (current) drug therapy; Z79.82 Long term (current) use of aspirin; Z90.49 Acquired absence of other specified parts of digestive tract; Z92.3 Personal history of irradiation; Z88.8 Allergy status to other drugs, medicaments and biological substances; Z88.6 Allergy status to analgesic agent; Z90.13 Acquired absence of bilateral breasts and nipples
CPT/HCPCS: 36415; 36573; 36600; 71045; 76700; 76937; 80048; 82105; 82375; 82378; 82607; 82728; 82746; 82805; 83036; 83540; 83550; 83605; 83735; 83880; 84439; 84443; 84481; 84484; 86850; 86900; 92610; 93005; 94640; 97116; 97162; 97166; 97530; 97535; C1725; C1893; J0456; J1160; J1650; J1956; J2920; J2930; J3490; J7040; J7060; J7512; J7620